=== PATIENT | female | born 1940 | race Caucasian/White ===

== ENCOUNTER → 2016-07-14 | Outpatient (CLI) | payer MEDICARE, MEDICAID ==
--- NOTE | 2016-07-14 11:40 | REP ---
BILATERAL MAMMOGRAM: Bilateral mammography performed in the MLO and CC projections and compared to multiple prior exams, most recently 07/03/2015. Once again there are clustered microcalcifications seen in the upper outer quadrant of each breast. Recommend magnification views to further evaluate, as sterotactic biopsy was recommended for both of these areas previously. Parenchymal pattern is unchanged with no new mass. IMPRESSION: ACR 0 incomplete. Clustered microcalcifications are again seen in the upper outer quadrant of each breast. Sterotactic biopsy was previously recommended for both of these areas. Recommend magnification views to further evaluate. BI-RADS/ACR category 0 mammogram, incomplete. Additional imaging and/or prior images are needed before a final assessment can be assigned. This mammogram was interpreted with the aid of an FDA-approved computer-aided detection system. The patient states she has not had a clinical breast exam in over a year. The patient letter being requested is M0. Signed by Angelo Walsh MD 07/14/2016 12:58 P
== END ==
LOC: M RAD 08:09
PROVIDERS: ATTEND Surgery
DX: Z12.31 Encounter for screening mammogram for malignant neoplasm of breast (principal)

== ENCOUNTER → 2016-08-03 | Outpatient (CLI) | payer MEDICARE, MEDICAID ==
--- NOTE | 2016-08-03 13:56 | REP ---
DIAGNOSTIC MAMMOGRAM BILATERAL: Bilateral ML views are performed. Magnification views could not be performed. Comparison made with multiple prior exams. Clustered microcalcifications in the upper outer quadrant of the right breast have increased over the past couple of years and again are considered suspicious. Clustered microcalcifications in the outer left breast have also increased in number in the past couple of years and are also considered suspicious. IMPRESSION: ACR 4 suspicious bilaterally. Clustered microcalcifications in the upper outer quadrant of the right breast and the outer left breast are considered suspicious. Again biopsy is recommended. The patient letter being requested is M4. Signed by Angelo Walsh MD 08/03/2016 04:47 P
== END ==
LOC: M RAD 12:58
PROVIDERS: ATTEND Surgery
DX: R92.2 Inconclusive mammogram (principal)

== ENCOUNTER → 2016-10-06 | Outpatient (CLI) | payer MEDICARE, MEDICAID ==
[~2016-10-06] MED LIST: ASPI1TAB PO; ATEN50TA2 PO; CHEW500C2 PO; COLA100C5 PO; DULC10SU2 PR; LEVO25TA5 PO; LISI-542 PO; MILKSUS PO; NIAS1000 PO; TRAZO50TA FT; VITA100066 PO; ZOCO10TA PO
--- NOTE | 2016-10-06 18:24 | REP ---
HISTORY: Pain and swelling. No trauma. COMPARISON: None. Degenerative change is seen throughout the foot. Small plantar and retrocalcaneal heel spurs are present. There is no evidence of an acute fracture. IMPRESSION: Chronic changes. Signed by Shayan Radford DO 10/06/2016 07:21 P
--- NOTE | 2016-10-07 09:19 | REP ---
LEFT ANKLE, FOUR VIEWS: HISTORY: Pain. COMPARISON: 04/30/2012 There is no change in the prior exam. There is no acute fracture. Unreviewed
== END ==
LOC: M WUC 17:03
PROVIDERS: ATTEND Physician Assistant
DX: M25.572 Pain in left ankle and joints of left foot (principal); M19.072 Primary osteoarthritis, left ankle and foot

== ENCOUNTER 2016-10-13 22:14 | Emergency (ER) | payer MEDICARE, MEDICAID ==
[~2016-10-13] VITALS: Ht 160 cm; Wt 86.5 kg
[2016-10-13] MEDS ORDERED: NIAS1000 PO (23:21)
[2016-10-13] MEDS ORDERED: COLA100C5 PO (23:21)
[2016-10-13] MEDS ORDERED: TRAZO50TA FT (23:21)
[2016-10-13] MEDS ORDERED: LEVO25TA5 PO (23:21)
[2016-10-13] MEDS ORDERED: MILKSUS PO (23:21)
[2016-10-13] MEDS ORDERED: DULC10SU2 PR (23:21)
[2016-10-13] MEDS ORDERED: ATEN50TA2 PO (23:21)
[2016-10-13] MEDS ORDERED: CHEW500C2 PO (23:21)
[2016-10-13] MEDS ORDERED: ZOCO10TA PO (23:21)
[2016-10-13] MEDS ORDERED: VITA100066 PO (23:21)
[2016-10-13] MEDS ORDERED: LISI-542 PO (23:21)
[2016-10-13] MEDS ORDERED: ASPI1TAB PO (23:21)
[2016-10-13] MEDS ORDERED: ASPIRIN 81 MG CHEW TABLET PO ONE (23:45)
[2016-10-13] MEDS ORDERED: NITROGLYCERIN 0.4 MG SUBL TABLET SL PRN (23:45)
[2016-10-14 00:27] LABS: BASO # 0.1 K/mm3 (0.0-0.2); BASO % 0.9 % (0.0-1.0); EOS # 0.3 K/mm3 (0.0-0.50); LARGE UNSTAINED CELL # 0.2 K/mm3 (0.0-0.4); LARGE UNSTAINED CELL % 2.7 % (0.0-4.0); LYMPH # 2.5 K/mm3 (1.5-4.5); LYMPH % 30.1 % (24.0-44.0); MEAN CORPUSCULAR HEMOGLOBIN 31.5 pg (27.0-33.0); MEAN CORPUSCULAR HGB CONC 33.6 g/dl (32.0-36.5); MEAN CORPUSCULAR VOLUME 93.9 fl (80.0-96.0); MONO # 0.6 K/mm3 (0.0-0.8); MONO % 7.9 % (0.0-5.0); NEUTROPHILS # 4.2 K/mm3 (1.8-7.7); NEUTROPHILS % 54.4 % (36.0-66.0); PLATELET COUNT, AUTOMATED 174 k/mm3 (150-450); RED CELL DISTRIBUTION WIDTH 12.3 % (11.5-14.5); WHITE BLOOD COUNT 7.8 K/mm3 (4.0-10.0)
[2016-10-14 01:12] LABS: ALBUMIN 3.1 GM/DL (3.2-5.2); ALBUMIN/GLOBULIN RATIO 0.89 (1.00-1.93); ALKALINE PHOSPHATASE 61 U/L (45-117); ALT/SGPT 20 U/L (12-78); ANION GAP 3 MEQ/L (8-16); AST/SGOT 10 U/L (15-37); BILIRUBIN,DIRECT < 0.1 MG/DL (0.0-0.2); BILIRUBIN,TOTAL 0.3 MG/DL (0.2-1.0); BLOOD UREA NITROGEN 19 MG/DL (7-18); CALCIUM LEVEL 9.6 MG/DL (8.8-10.2); CARBON DIOXIDE LEVEL 31 MEQ/L (21-32); CHLORIDE LEVEL 106 MEQ/L (98-107); CREATININE FOR GFR 1.34 MG/DL (0.55-1.02); GLOMERULAR FILTRATION RATE 41.2 (>39); GLUCOSE, FASTING 96 MG/DL (83-110); POTASSIUM SERUM 4.7 MEQ/L (3.5-5.1); SODIUM LEVEL 140 MEQ/L (136-145); TOTAL PROTEIN 6.6 GM/DL (6.4-8.2)
[2016-10-14] MEDS ORDERED: GI COCKTAIL 50ML BTL(HYOSCYAMINE/MAALOX/LIDOCAINE VISCOUS)(1:3:1) PO ONE (01:45)
--- NOTE | 2016-10-14 06:44 | ECGEPIP ---
Stationary ECG Study [facility] - ED Test Date: 2016-10-14 Pat Name: RAINE SOLIS Department: Room: - Gender: F Supervisor Boarding: : 1940 Requested By: GRACIA March Order Number: [id number] Reading MD: Gabe Espinal Measurements Intervals [place]ley Rate: 78 P: 56 GA: 178 QRS: 24 QRSD: 86 T: 43 QT: 371 QTc: 425 Interpretive Statements SINUS RHYTHM Electronically Signed On 10-14-2016 6:43:45 EDT by Gabe Espinal
[2016-10-14 07:35] VITALS: BP 145/85
--- NOTE | 2016-10-14 09:15 | REP ---
PORTABLE CHEST: AP portable view of the chest is performed. There is no prior study for comparison. There is poor ventilation with linear atelectatic change in each lung base. The heart is not enlarged. The mediastinal silhouette is unremarkable. IMPRESSION: Mild bibasilar atelectatic change. Signed by Angelo Walsh MD 10/14/2016 05:21 P
== END 2016-10-14 07:37 | disposition home or self-care (01) ==
LOC: EDBD 22:14 → M ED 22:14
DX: K21.9 Gastro-esophageal reflux disease without esophagitis (principal); I10 Essential (primary) hypertension; H25.10 Age-related nuclear cataract, unspecified eye; Z82.49 Family history of ischemic heart disease and other diseases of the circulatory system; Z79.82 Long term (current) use of aspirin; Z79.899 Other long term (current) drug therapy

== ENCOUNTER → 2016-11-17 | Outpatient (CLI) | payer MEDICARE, MEDICAID ==
--- NOTE | 2016-11-18 09:46 | DEXA ---
AP SPINE L1 - L4 1.405 1.7 3.4 LT FEMUR TOTAL 0.867 -1.1 0.6 RT FEMUR TOTAL 0.802 -1.6 0.1 TOTAL BODY TOTAL OTHER DUAL FEMUR FRAX* ASSESSMENT Risk factors: 10 year probability of fracture Major osteoporotic fracture % Hip fracture % COMMENTS: Normal bone densitometry of the spine. There is low bone density of the hips. The decreased density of the spine does not represent a significant change. The increased density of the left hip does not represent a significant change. The decreased density of the right hip does represent a significant change. The density of the spine has increased 19.2% since the initial exam on 2004. The spine density has decreased 0.5% since the most recent exam on 11/06/2014. The density of the left hip has increased 11.0% since the density initial exam on 09/17/2004. The density of the left hip has increased 1.2% since the most recent exam on 09/2014. The density of the right hip has decreased 3.3% since the initial exam on 2004. The density of the right hip has decreased 2.6% since the most recent exam on . FOLLOW-UP: Recommendation for the next bone density exam: 2 years. NEENA
== END ==
LOC: M WHC 10:34
PROVIDERS: ATTEND Nurse Practitioner Family
DX: Z01.419 Encounter for gynecological examination (general) (routine) without abnormal findings (principal); M81.8 Other osteoporosis without current pathological fracture; Z78.0 Asymptomatic menopausal state; M85.80 Other specified disorders of bone density and structure, unspecified site
CPT/HCPCS: 77080; G0101

== ENCOUNTER → 2016-11-23 | Outpatient (CLI) | payer MEDICARE, MEDICAID ==
[2016-11-23 09:54] LABS: BASO # 0.1 K/mm3 (0.0-0.2); BASO % 1.3 % (0.0-1.0); EOS # 0.2 K/mm3 (0.0-0.50); EOS % 5.2 % (0.0-3.0); LARGE UNSTAINED CELL # 0.1 K/mm3 (0.0-0.4); LARGE UNSTAINED CELL % 2.7 % (0.0-4.0); LYMPH # 1.8 K/mm3 (1.5-4.5); MEAN CORPUSCULAR HEMOGLOBIN 32.2 pg (27.0-33.0); MEAN CORPUSCULAR HGB CONC 33.3 g/dl (32.0-36.5); MEAN CORPUSCULAR VOLUME 96.6 fl (80.0-96.0); MONO # 0.3 K/mm3 (0.0-0.8); MONO % 6.1 % (0.0-5.0); NEUTROPHILS # 2.3 K/mm3 (1.8-7.7); NEUTROPHILS % 49.7 % (36.0-66.0); PLATELET COUNT, AUTOMATED 166 k/mm3 (150-450); RED CELL DISTRIBUTION WIDTH 12.5 % (11.5-14.5); WHITE BLOOD COUNT 4.7 K/mm3 (4.0-10.0)
[2016-11-23 10:22] LABS: ALBUMIN 3.6 GM/DL (3.2-5.2); ALBUMIN/GLOBULIN RATIO 1.13 (1.00-1.93); BILIRUBIN,TOTAL 0.4 MG/DL (0.2-1.0); CALCIUM LEVEL 9.1 MG/DL (8.8-10.2); CREATININE FOR GFR 1.28 MG/DL (0.55-1.02); FREE T4 1.16 NG/DL (0.76-1.46); GLOMERULAR FILTRATION RATE 43.4 (>39); POTASSIUM SERUM 4.2 MEQ/L (3.5-5.1); TOTAL PROTEIN 6.8 GM/DL (6.4-8.2)
== END ==
LOC: M WUC 08:27
PROVIDERS: ATTEND Nurse Practitioner Family
DX: I10 Essential (primary) hypertension (principal); E55.9 Vitamin D deficiency, unspecified; E03.9 Hypothyroidism, unspecified; E78.4 Other hyperlipidemia

== ENCOUNTER → 2017-03-15 | Outpatient (CLI) | payer MEDICARE, MEDICAID ==
--- NOTE | 2017-03-15 14:52 | REP ---
RIGHT TIB-FIB SERIES: TWO VIEWS HISTORY: Bruising and contusion. No comparison study. FINDINGS: AP and lateral views of the right tib-fib show diffuse soft tissue swelling laterally and distally. The lateral view is an oblique. Apparently, positioning was less than optimal due to this patient's relative inability to cooperate. No fracture or subluxation is seen. IMPRESSION: No fracture noted. Calf swelling. Signed by Alec Patel MD 03/15/2017 05:00 P
== END ==
LOC: M WUC 12:48
PROVIDERS: ATTEND Physician Assistant
DX: S80.11XA Contusion of right lower leg, initial encounter (principal); X58.XXXA Exposure to other specified factors, initial encounter; Y92.89 Other specified places as the place of occurrence of the external cause; Y93.89 Activity, other specified; Y99.8 Other external cause status

== ENCOUNTER → 2017-06-21 | Outpatient (CLI) | payer MEDICARE, MEDICAID ==
[2017-06-21 14:09] LABS: BASO % 0.3 % (0.0-1.0); HEMATOCRIT 40.5 % (36.0-47.0); HEMOGLOBIN 13.1 g/dl (12.0-16.0); IMMATURE GRANULOCYTE % 0.3 % (0-3.0); LYMPH # 2.1 10^3/uL (1.5-4.5); MEAN CORPUSCULAR HGB CONC 32.3 g/dl (32.0-36.5); MEAN CORPUSCULAR VOLUME 92.9 fl (80.0-96.0); MONO # 0.8 10^3/uL (0.0-0.8); MONO % 11.4 % (0.0-5.0); NEUTROPHILS # 4.1 10^3/uL (1.8-7.7); PLATELET COUNT, AUTOMATED 144 10^3/uL (150-450); RED BLOOD COUNT 4.36 10^6/uL (4.00-5.40)
== END ==
LOC: M WUC 10:48
DX: J20.9 Acute bronchitis, unspecified (principal)
CPT/HCPCS: 85025

== ENCOUNTER → 2017-07-26 | Outpatient (REF) | payer MEDICARE, MEDICAID ==
[2017-07-26 12:30] LABS: APPEARANCE, URINE TURBID (CLEAR); BACTERIA, URINE AUTO 3+ (NEGATIVE); BILIRUBIN, URINE AUTO NEGATIVE (NEGATIVE); BLOOD, URINE BLOOD 1+ (NEGATIVE); COLOR, URINE YELLOW (YELLOW); GLUCOSE, URINE (UA) AUTO NEGATIVE (NEGATIVE); KETONE, URINE AUTO NEGATIVE (NEGATIVE); LEUKOCYTE ESTERASE, URINE AUTO 3+ (NEGATIVE); MUCUS, URINE SMALL (NEGATIVE); NITRITE, URINE AUTO NEGATIVE (NEGATIVE); PROTEIN, URINE AUTO 1+ mg/dL (NEGATIVE); RBC, URINE AUTO 28 /HPF (0-3); SQUAMOUS EPITHELIAL CELL UR AU 1 /HPF (0-6); UROBILINOGEN, URINE AUTO 0.2 mg/dL (0.0-2.0); WBC, URINE AUTO TNTC /HPF (0-3)
== END ==
LOC: M LAB REF 12:00
DX: N39.0 Urinary tract infection, site not specified (principal)
CPT/HCPCS: 81001

== ENCOUNTER → 2017-08-15 | Outpatient (CLI) | payer MEDICARE, MEDICAID | LOC: M RAD 09:01 | DX: R92.0 Mammographic microcalcification found on diagnostic imaging of breast (principal) | CPT/HCPCS: 77066 ==

== ENCOUNTER → 2017-08-24 | Outpatient (REF) | payer MEDICARE, MEDICAID ==
[2017-08-24 18:39] LABS: APPEARANCE, URINE HAZY (CLEAR); BACTERIA, URINE AUTO 1+ (NEGATIVE); BILIRUBIN, URINE AUTO NEGATIVE (NEGATIVE); BLOOD, URINE BLOOD NEGATIVE (NEGATIVE); COLOR, URINE YELLOW (YELLOW); GLUCOSE, URINE (UA) AUTO NEGATIVE (NEGATIVE); KETONE, URINE AUTO NEGATIVE (NEGATIVE); LEUKOCYTE ESTERASE, URINE AUTO 1+ (NEGATIVE); MUCUS, URINE SMALL (NEGATIVE); NITRITE, URINE AUTO NEGATIVE (NEGATIVE); PROTEIN, URINE AUTO NEGATIVE (NEGATIVE); RBC, URINE AUTO 1 /HPF (0-3); SPECIFIC GRAVITY URINE AUTO 1.011 (1.002-1.035); SQUAMOUS EPITHELIAL CELL UR AU 1 /HPF (0-6); UROBILINOGEN, URINE AUTO 0.2 mg/dL (0.0-2.0); WBC, URINE AUTO 26 /HPF (0-3)
== END ==
LOC: M SMT 17:00
DX: N39.0 Urinary tract infection, site not specified (principal)
CPT/HCPCS: 81001

== ENCOUNTER → 2017-11-15 | Outpatient (CLI) | payer MEDICARE, MEDICAID ==
[2017-11-15 09:52] LABS: BASO % 0.8 % (0.0-1.0); EOS # 0.2 10^3/uL (0.0-0.50); EOS % 4.2 % (0.0-3.0); HEMATOCRIT 39.3 % (36.0-47.0); HEMOGLOBIN 12.8 g/dl (12.0-15.5); IMMATURE GRANULOCYTE % 0.2 % (0-3.0); LYMPH % 38.2 % (24.0-44.0); MEAN CORPUSCULAR HEMOGLOBIN 31.5 pg (27.0-33.0); MEAN CORPUSCULAR HGB CONC 32.6 g/dl (32.0-36.5); MEAN CORPUSCULAR VOLUME 96.8 fl (80.0-96.0); MONO # 0.4 10^3/uL (0.0-0.8); MONO % 8.3 % (0.0-5.0); NEUTROPHILS # 2.5 10^3/uL (1.8-7.7); NEUTROPHILS % 48.3 % (36.0-66.0); PLATELET COUNT, AUTOMATED 145 10^3/uL (150-450); RED BLOOD COUNT 4.06 10^6/uL (4.00-5.40); WHITE BLOOD COUNT 5.2 10^3/uL (4.0-10.0)
[2017-11-15 10:40] LABS: TOTAL 25(OH) VITAMIN D 41.4 NG/ML (30.0-100.0)
[2017-11-15 10:49] LABS: ALBUMIN 3.3 GM/DL (3.2-5.2); ALKALINE PHOSPHATASE 51 U/L (45-117); ALT/SGPT 16 U/L (12-78); ANION GAP 10 MEQ/L (8-16); AST/SGOT 12 U/L (7-37); BILIRUBIN,TOTAL 0.3 MG/DL (0.2-1.0); BLOOD UREA NITROGEN 25 MG/DL (7-18); CALCIUM LEVEL 9.3 MG/DL (8.8-10.2); CARBON DIOXIDE LEVEL 26 MEQ/L (21-32); CHLORIDE LEVEL 107 MEQ/L (98-107); CHOLESTEROL LEVEL 138 MG/DL (<200); CHOLESTEROL RISK RATIO 2.705 (<5); CREATININE FOR GFR 2.06 MG/DL (0.55-1.30); GLUCOSE, FASTING 86 MG/DL (70-100); HDL CHOLESTEROL 51 MG/DL (>40); LDL CHOLESTEROL 51.6 MG/DL (<100); NON-HDL-C 87 MG/DL; POTASSIUM SERUM 4.3 MEQ/L (3.5-5.1); SODIUM LEVEL 143 MEQ/L (136-145); TOTAL PROTEIN 6.3 GM/DL (6.4-8.2); TRIGLYCERIDES LEVEL 177 MG/DL (<150)
[2017-11-15 11:31] LABS: FREE T3 2.1 PG/ML (2.2-4.0)
== END ==
LOC: M WUC 08:06
DX: I10 Essential (primary) hypertension (principal); E55.9 Vitamin D deficiency, unspecified; E03.9 Hypothyroidism, unspecified; E78.4 Other hyperlipidemia
CPT/HCPCS: 84443

== ENCOUNTER → 2017-12-13 | Outpatient (CLI) | payer MEDICARE, MEDICAID | LOC: M SMT 10:34 | DX: N18.4 Chronic kidney disease, stage 4 (severe) (principal); N28.1 Cyst of kidney, acquired | CPT/HCPCS: 76770 ==

== ENCOUNTER → 2018-01-01 | Outpatient (CLI) | payer MEDICARE, MEDICAID ==
[2018-01-01 14:05] LABS: FREE T3 2.2 PG/ML (2.2-4.0); FREE T4 0.98 NG/DL (0.76-1.46)
== END ==
LOC: M WUC 10:06
DX: E03.9 Hypothyroidism, unspecified (principal)
CPT/HCPCS: 84443

== ENCOUNTER → 2018-08-23 | Outpatient (CLI) | payer MEDICARE, MEDICAID ==
[~2018-08-23] MED LIST changes: -ASPI1TAB PO; +ASPI81TA26 PO; +MILK120011 PO; -MILKSUS PO; -NIAS1000 PO; +[UNRECOGNIZED DRUG - CODE] PO
--- NOTE | 2018-08-23 09:48 | REPMRS ---
Patient History The patient states she has not had a clinical breast exam in over a year. [facility] client hx not available Digital Mammo Diagnostic Bilateral: August 23, 2018 - Exam #: [id number] Bilateral CC and MLO view(s) were taken. Technologist: Linda Brown, Technologist Prior study comparison: August 15, 2017, digital mammo diagnostic bilateral performed at [facility]. August 03, 2016, digital mammo diagnostic bilateral performed at [facility]. FINDINGS: The breast tissue is heterogeneously dense. This may lower the sensitivity of mammography. There has been no change in the appearance of the mammogram from the prior studies. There is a moderate amount of residual fibroglandular tissue which is fairly symmetric. There is no interval development of dominant mass, areas of architectural distortion, or clustered microcalcification typical of malignancy. Assessment: BI-RADS/ACR category 1 mammogram. Negative Mammogram. Recommendation Routine screening mammogram in 1 year (for women over age 40). This mammogram was interpreted with the aid of an FDA-approved computer-aided dectection system. Electronically Signed By: Angelo Walsh MD 08/23/18 0971
== END ==
LOC: M RAD 09:10
PROVIDERS: ATTEND Surgery
DX: R92.0 Mammographic microcalcification found on diagnostic imaging of breast (principal)

== ENCOUNTER → 2018-11-29 | Outpatient (CLI) | payer MEDICARE, MEDICAID ==
[~2018-11-29] MED LIST changes: +TRAZ1TAB10 FT; -TRAZO50TA FT
[2018-11-29 13:15] LABS: BASO # 0.1 10^3/uL (0.0-0.2); BASO % 1.1 % (0.0-1.0); EOS # 0.2 10^3/uL (0.0-0.50); EOS % 3.3 % (0.0-3.0); HEMATOCRIT 42.6 % (36.0-47.0); HEMOGLOBIN 13.7 g/dl (12.0-15.5); LYMPH # 2.3 10^3/uL (1.5-4.5); MEAN CORPUSCULAR HEMOGLOBIN 31.3 pg (27.0-33.0); MEAN CORPUSCULAR HGB CONC 32.2 g/dl (32.0-36.5); MEAN CORPUSCULAR VOLUME 97.3 fl (80.0-96.0); MONO # 0.6 10^3/uL (0.0-0.8); MONO % 11.1 % (0.0-5.0); NEUTROPHILS # 2.5 10^3/uL (1.8-7.7); NEUTROPHILS % 43.3 % (36.0-66.0); PLATELET COUNT, AUTOMATED 176 10^3/uL (150-450); RED BLOOD COUNT 4.38 10^6/uL (4.00-5.40); WHITE BLOOD COUNT 5.7 10^3/uL (4.0-10.0)
[2018-11-29 13:55] LABS: ALBUMIN 3.3 GM/DL (3.2-5.2); BILIRUBIN,TOTAL 0.3 MG/DL (0.2-1.0); CALCIUM LEVEL 9.6 MG/DL (8.8-10.2); CHOLESTEROL RISK RATIO 3.911 (<5); CREATININE FOR GFR 1.94 MG/DL (0.55-1.30); FREE T4 1.29 NG/DL (0.76-1.46); GLOMERULAR FILTRATION RATE 26.7 (>39); MAGNESIUM LEVEL 2.3 MG/DL (1.8-2.4); POTASSIUM SERUM 4.7 MEQ/L (3.5-5.1); PTH INTACT 69.2 PG/ML (18.5-88.0); THYROID STIMULATING HORMONE 2.74 uIU/ML (0.358-3.740); TOTAL 25(OH) VITAMIN D 38.5 NG/ML (30.0-100.0); TOTAL PROTEIN 6.3 GM/DL (6.4-8.2)
[2018-11-29 14:52] LABS: HEMOGLOBIN A1c 5.2 %
== END ==
LOC: M WUC 08:22
PROVIDERS: ATTEND Nurse Practitioner Family
DX: I10 Essential (primary) hypertension (principal); E03.9 Hypothyroidism, unspecified; E78.5 Hyperlipidemia, unspecified; E55.9 Vitamin D deficiency, unspecified; Z79.899 Other long term (current) drug therapy

== ENCOUNTER → 2018-12-18 | Outpatient (CLI) | payer MEDICARE, MEDICAID ==
--- NOTE | 2018-12-20 11:33 | DEXA ---
AP SPINE L1 - L4 1.397 1.6 3.4 LT FEMUR TOTAL 0.843 -1.3 0.5 LT NECK 0.779 -1.9 0.1 RT FEMUR TOTAL 0.788 -1.7 0.1 RT NECK 0.789 -1.8 0.2 TOTAL BODY TOTAL OTHER COMMENTS: Normal bone densitometry of the spine. There is low bone density of hips. The decreased density of the spine does not represent a significant change. The decreased density of the left hip does represent a significant change. The decreased density of the right hip does not represent a significant change. The density of the spine has increased 18.5% since the initial exam on 09/17/2004. The spine density has decreased 0.6% since the most recent exam on 11/17/2016. The density of the left hip has increased 7.9% since the initial exam on 09/17/2004. The density of the left hip has decreased 2.8% since the most recent exam on 11/17/2016. The density of the right hip has decreased 4.9% since the initial exam on 09/17/2004. The density of the right hip has decreased 1.7% since the most recent exam on 11/17/2016. FOLLOW-UP: Recommendation for the next bone density exam: 2 years. NEENA
== END ==
LOC: M WHC 13:47
PROVIDERS: ATTEND Nurse Practitioner Family
DX: M81.0 Age-related osteoporosis without current pathological fracture (principal)

== ENCOUNTER → 2019-05-27 | Outpatient (CLI) | payer MEDICARE, MEDICAID ==
[2019-05-27 09:42] LABS: BASO # 0.1 10^3/uL (0.0-0.2); BASO % 1.2 % (0.0-1.0); EOS # 0.2 10^3/uL (0.0-0.5); EOS % 3.9 % (0.0-3.0); HEMATOCRIT 45.6 % (36.0-47.0); HEMOGLOBIN 14.7 g/dl (12.0-15.5); LYMPH % 34.5 % (24.0-44.0); MEAN CORPUSCULAR HEMOGLOBIN 30.2 pg (27.0-33.0); MEAN CORPUSCULAR HGB CONC 32.2 g/dl (32.0-36.5); MEAN CORPUSCULAR VOLUME 93.8 fl (80.0-96.0); MONO # 0.5 10^3/uL (0.0-0.8); MONO % 7.9 % (0.0-5.0); NEUTROPHILS # 3.1 10^3/uL (1.5-8.5); NEUTROPHILS % 52.3 % (36.0-66.0); PLATELET COUNT, AUTOMATED 190 10^3/uL (150-450); RED BLOOD COUNT 4.86 10^6/uL (4.00-5.40); WHITE BLOOD COUNT 5.9 10^3/uL (4.0-10.0)
[2019-05-27 10:05] LABS: HEMOGLOBIN A1c 4.8 %
[2019-05-27 10:19] LABS: ALBUMIN 3.7 GM/DL (3.2-5.2); BILIRUBIN,TOTAL 0.4 MG/DL (0.2-1.0); CALCIUM LEVEL 9.8 MG/DL (8.8-10.2); CHOLESTEROL RISK RATIO 3.568 (<5); CREATININE FOR GFR 1.82 MG/DL (0.55-1.30); FREE T4 1.28 NG/DL (0.76-1.46); GLOMERULAR FILTRATION RATE 28.7 (>39); MAGNESIUM LEVEL 2.5 MG/DL (1.8-2.4); POTASSIUM SERUM 4.8 MEQ/L (3.5-5.1); THYROID STIMULATING HORMONE 1.69 uIU/ML (0.358-3.740); TOTAL PROTEIN 6.7 GM/DL (6.4-8.2)
[2019-05-27 10:27] LABS: PTH INTACT 88.5 PG/ML (18.5-88.0); TOTAL 25(OH) VITAMIN D 49.1 NG/ML (30.0-100.0)
== END ==
LOC: M WUC 08:13
PROVIDERS: ATTEND Nurse Practitioner Family
DX: I10 Essential (primary) hypertension (principal); E03.9 Hypothyroidism, unspecified; E78.5 Hyperlipidemia, unspecified; E55.9 Vitamin D deficiency, unspecified

== ENCOUNTER 2019-06-19 04:08 | Emergency (ER) | payer MEDICARE, MEDICAID ==
--- NOTE | 2019-06-19 04:48 | REPVR ---
PROCEDURE INFORMATION: Exam: CT Head Without Contrast Exam date and time: 06/19/2019 4:23 AM Age: 79 years old Clinical indication: Injury or trauma; Fall; Initial encounter; Blunt trauma (contusions or hematomas); Consciousness not specified TECHNIQUE: Imaging protocol: Computed tomography of the head without contrast. Radiation optimization: All CT scans at this facility use at least one of these dose optimization techniques: automated exposure control; mA and/or kV adjustment per patient size (includes targeted exams where dose is matched to clinical indication); or iterative reconstruction. COMPARISON: No relevant prior studies available. FINDINGS: Brain: There is minimal patchy low attenuation of deep white matter. Increased CSF around the cerebellum consistent with moderate atrophic change. Ventricles: There is slight prominence of the central ventricular system. Bones/joints: Hyperostosis of the calvarium with thickening. Sinuses: Visualized sinuses are unremarkable. No fluid levels. Mastoid air cells: Opacification of some mastoid air cells bilaterally. Soft tissues: Unremarkable. IMPRESSION: 1. Minimal chronic ischemic white matter change. 2. Moderate cerebellar atrophy and minimal cerebral atrophy. 3. Opacification of some mastoid air cells bilaterally. 4. Otherwise negative noncontrast head CT. Electronically signed by: Casey Cooley On 06/19/2019 04:48:21 AM
--- NOTE | 2019-06-19 04:54 | REPVR ---
PROCEDURE INFORMATION: Exam: CT Cervical Spine Without Contrast Exam date and time: 06/19/2019 4:23 AM Age: 79 years old Clinical indication: Neck pain; Additional info: Fall TECHNIQUE: Imaging protocol: Computed tomography images of the cervical spine without contrast. Radiation optimization: All CT scans at this facility use at least one of these dose optimization techniques: automated exposure control; mA and/or kV adjustment per patient size (includes targeted exams where dose is matched to clinical indication); or iterative reconstruction. COMPARISON: No relevant prior studies available. FINDINGS: Vertebrae: No acute fracture. Normal alignment. C2-C3: Slight interspace narrowing with mild degenerative change of the left apophyseal joints and no spinal or foraminal stenosis. C3-C4: Mild interspace narrowing with degenerative changes of the apophyseal joints and no significant spinal or foraminal stenosis. C4-C5: Slight anterolisthesis with degenerative/arthritic change of the apophyseal joints bilaterally with widening of the joint suggesting effusions. There is borderline spinal stenosis and borderline left neural foraminal stenosis. C5-C6: Mild anterolisthesis with mild posterior central protrusion of the disc and bilateral degenerative change. There is mild central canal stenosis and borderline bilateral neural foraminal stenosis. C6-C7: Moderate interspace narrowing with degenerative vacuum phenomenon and bilateral degenerative change. There is mild secondary spinal stenosis and borderline left neural foraminal stenosis. C7-T1: Slight interspace narrowing with mild anterolisthesis and bilateral degenerative change of apophyseal joints with borderline bilateral neural foraminal stenosis. Soft tissues: Unremarkable. Mastoid air cells: Opacification of some mastoid air cells bilaterally. Lungs: Lung apices are normal. IMPRESSION: 1. Multilevel degenerative changes with varying degrees of spinal stenosis and borderline neural foraminal stenosis at multiple levels. 2. No acute fracture or subluxation. Electronically signed by: Casey Cooley On 06/19/2019 04:54:08 AM
[2019-06-19] MEDS ORDERED: ACETAMINOPHEN TAB 650MG DOSE (2X325MG) PO ONE (05:30)
[2019-06-19] MEDS ORDERED: PILL CUTTER 1 EACH XX ONE (05:32)
[2019-06-19 05:36] VITALS: BP 169/92
--- NOTE | 2019-06-19 07:54 | REP ---
Left shoulder: Three views. History: Injury in a fall. Comparison study: May 17, 2007. Findings: There is mild osteoarthritis of the glenohumeral and acromioclavicular joints. These articulations are normally aligned. No fracture or subluxation is seen. There is some diffuse osteopenia. Impression: Diffuse osteopenia and mild osteoarthritic change. No fracture or other acute bony abnormality. Electronically Signed by Alec Patel MD 06/19/2019 07:45 A
== END 2019-06-19 05:52 | disposition home or self-care (01) ==
LOC: EDSEX 04:08 → EDBD 04:08 → M ED 04:08
DX: S40.012A Contusion of left shoulder, initial encounter (principal); W19.XXXA Unspecified fall, initial encounter; Y92.89 Other specified places as the place of occurrence of the external cause; Y93.9 Activity, unspecified; Y99.9 Unspecified external cause status; M48.02 Spinal stenosis, cervical region; M85.812 Other specified disorders of bone density and structure, left shoulder; M19.012 Primary osteoarthritis, left shoulder; F80.9 Developmental disorder of speech and language, unspecified; I12.9 Hypertensive chronic kidney disease with stage 1 through stage 4 chronic kidney disease, or unspecified chronic kidney disease; E78.5 Hyperlipidemia, unspecified; K21.9 Gastro-esophageal reflux disease without esophagitis; E03.9 Hypothyroidism, unspecified; F79 Unspecified intellectual disabilities; Z79.82 Long term (current) use of aspirin; Z79.899 Other long term (current) drug therapy

== ENCOUNTER → 2019-07-04 | Outpatient (CLI) | payer MEDICARE, MEDICAID ==
--- NOTE | 2019-07-04 18:34 | REP ---
RIGHT HAND SERIES: FOUR VIEWS. HISTORY: Hand pain. Thumb swelling. No comparison study. FINDINGS: Four views of the left hand demonstrate mild diffuse osteopenia. There is moderate osteoarthritis at the first carpometacarpal articulation. Mild osteoarthritic spurring is seen at the first MCP and IP joints. There are erosive osteoarthritic changes involving the PIP joints of the long, ring, and small finger and to a lesser extent, the index finger. Osteoarthritic changes are seen in the DIP joints of the index, long and small finger as well. There are marginal erosive changes at the PIP joint of the long finger. IMPRESSION: Findings consistent with erosive osteoarthritis. Electronically Signed by Alec Patel MD 07/04/2019 07:32 P
== END ==
LOC: M WUC 17:59
PROVIDERS: ATTEND Physician Assistant
DX: M79.642 Pain in left hand (principal)

== ENCOUNTER → 2019-10-01 | Outpatient (REF) | payer MEDICARE, MEDICAID ==
[2019-10-01 11:50] LABS: BASO # 0.1 10^3/uL (0.0-0.2); BASO % 1.2 % (0.0-1.0); EOS # 0.2 10^3/uL (0.0-0.5); EOS % 3.6 % (0.0-3.0); HEMATOCRIT 49.7 % (36.0-47.0); HEMOGLOBIN 15.8 g/dl (12.0-15.5); LYMPH # 1.6 10^3/uL (1.5-5.0); LYMPH % 24.3 % (24.0-44.0); MEAN CORPUSCULAR HEMOGLOBIN 29.7 pg (27.0-33.0); MEAN CORPUSCULAR HGB CONC 31.8 g/dl (32.0-36.5); MEAN CORPUSCULAR VOLUME 93.4 fl (80.0-96.0); MONO # 0.5 10^3/uL (0.0-0.8); MONO % 8.3 % (0.0-5.0); NEUTROPHILS % 62.3 % (36.0-66.0); PLATELET COUNT, AUTOMATED 199 10^3/uL (150-450); RED BLOOD COUNT 5.32 10^6/uL (4.00-5.40); WHITE BLOOD COUNT 6.5 10^3/uL (4.0-10.0)
[2019-10-01 12:20] LABS: BLOOD UREA NITROGEN 32 MG/DL (7-18); CREATININE FOR GFR 2.12 MG/DL (0.55-1.30); GLUCOSE, FASTING 114 MG/DL (70-100)
[2019-10-01 12:21] LABS: ALBUMIN 3.4 GM/DL (3.2-5.2); ALT/SGPT 19 U/L (12-78); BILIRUBIN,TOTAL 0.3 MG/DL (0.2-1.0); CALCIUM LEVEL 10.2 MG/DL (8.8-10.2); CARBON DIOXIDE LEVEL 27 MEQ/L (21-32); CHLORIDE LEVEL 107 MEQ/L (98-107); POTASSIUM SERUM 4.4 MEQ/L (3.5-5.1); SODIUM LEVEL 139 MEQ/L (136-145); TOTAL PROTEIN 7.1 GM/DL (6.4-8.2)
[2019-10-02 09:25] LABS: HEPATITIS A ANTIBODY IGM NEGATIVE (NEGATIVE)
== END ==
LOC: M SFHCPLAZ 09:25
PROVIDERS: ATTEND Physician Assistant Medical
DX: E86.0 Dehydration (principal)
CPT/HCPCS: 36415; 80053; 85025; 86708; 86709; G0463

== ENCOUNTER → 2019-11-26 | Outpatient (CLI) | payer MEDICARE, MEDICAID ==
[2019-11-26 13:00] LABS: BASO # 0.1 10^3/uL (0.0-0.2); BASO % 1.2 % (0.0-1.0); EOS # 0.2 10^3/uL (0.0-0.5); EOS % 3.9 % (0.0-3.0); HEMATOCRIT 43.8 % (36.0-47.0); HEMOGLOBIN 14.1 g/dl (12.0-15.5); LYMPH # 1.9 10^3/uL (1.5-5.0); LYMPH % 32.2 % (24.0-44.0); MEAN CORPUSCULAR HEMOGLOBIN 30.4 pg (27.0-33.0); MEAN CORPUSCULAR HGB CONC 32.2 g/dl (32.0-36.5); MEAN CORPUSCULAR VOLUME 94.4 fl (80.0-96.0); MONO # 0.5 10^3/uL (0.0-0.8); MONO % 8.9 % (0.0-5.0); NEUTROPHILS # 3.2 10^3/uL (1.5-8.5); NEUTROPHILS % 53.5 % (36.0-66.0); PLATELET COUNT, AUTOMATED 209 10^3/uL (150-450); RED BLOOD COUNT 4.64 10^6/uL (4.00-5.40); WHITE BLOOD COUNT 5.9 10^3/uL (4.0-10.0)
[2019-11-26 13:28] LABS: ALBUMIN 3.3 GM/DL (3.2-5.2); BILIRUBIN,TOTAL 0.4 MG/DL (0.2-1.0); CALCIUM LEVEL 9.1 MG/DL (8.8-10.2); CHOLESTEROL RISK RATIO 3.605 (<5); CREATININE FOR GFR 2.23 MG/DL (0.55-1.30); FREE T4 1.48 NG/DL (0.76-1.46); GLOMERULAR FILTRATION RATE 22.7 (>39); POTASSIUM SERUM 4.8 MEQ/L (3.5-5.1); THYROID STIMULATING HORMONE 3.13 uIU/ML (0.358-3.740); TOTAL PROTEIN 6.3 GM/DL (6.4-8.2)
== END ==
LOC: M WUC 08:17
PROVIDERS: ATTEND Nurse Practitioner Family
DX: E03.9 Hypothyroidism, unspecified (principal); E78.5 Hyperlipidemia, unspecified; I10 Essential (primary) hypertension

== ENCOUNTER → 2020-01-08 | Outpatient (CLI) | payer MEDICARE, MEDICAID ==
--- NOTE | 2020-01-13 09:58 | REP ---
COMPLETE ABDOMINAL SONOGRAPHY HISTORY: Abdomen pain, decreased appetite, constipation. FINDINGS: Scanning through the right upper quadrant of the abdomen demonstrate multiple nonmobile shadowing echogenic foci in the gallbladder lumen consistent with stones. The largest of these measures 1.7 cm in diameter. No gallbladder wall thickening or pericholecystic fluid is seen. Common bile duct is normal measuring 0.5 cm in greatest diameter. There is some bowel gas partially obscuring the left lobe of the liver. No focal liver mass lesion is seen. The liver is not felt to be enlarged. Pancreas is obscured by abdominal gas. A normal size homogeneous spleen is seen in the left upper quadrant, maximum dimension 8.7 cm. No free fluid is seen. Normal caliber distal aorta is observed. Renal cortical echogenicity pattern is normal. Bilateral renal cortical thinning/atrophy is seen. There is a 0.9 x 1.0 cm left renal cyst. Left kidney measures 8.3 x 3.4 x 4.0 cm. Right renal dimensions are 8.0 x 3.6 x 3.2 cm. No hydronephrosis or renal mass is observed. IMPRESSION: Cholelithiasis. Renal cortical atrophy. Small left renal cyst. MTDD
--- NOTE | 2020-01-13 10:00 | REP ---
PELVIC SONOGRAPHY HISTORY: Status post partial hysterectomy. Abdomen pain. Decreased appetite. Constipation. FINDINGS: Transabdominal scanning demonstrates smooth bladder coronel. The uterus is not seen consistent with surgical absence hysterectomy. Neither ovary could be visualized. No adnexal mass, cyst, or free fluid is seen. IMPRESSION: Negative pelvic sonography post hysterectomy. No adnexal mass, cyst, or free fluid noted. MTDD
--- NOTE | 2020-01-13 10:02 | REP ---
KUB: 2-VIEWS HISTORY: Abdomen pain. Decreased appetite. Constipation. FINDINGS: KUB demonstrates air and stool in the ascending colon, descending colon, and rectum. No small bowel dilation is seen. There is mild gaseous distention of a loop of colon in the central abdomen, which appears to be sigmoid. Question mild ileus. There are degenerative spondylosis changes in the lumbar spine. A bone island is seen in the right iliac bone. IMPRESSION: Air distended loop of mildly dilated sigmoid colon of doubtful significance. No obstructive lesion seen. MTDD
== END ==
LOC: M RAD 08:01
PROVIDERS: ATTEND Physician Assistant
DX: R10.9 Unspecified abdominal pain (principal); K59.00 Constipation, unspecified; R63.0 Anorexia

== ENCOUNTER → 2020-01-17 | Outpatient (CLI) | payer MEDICARE, MEDICAID ==
--- NOTE | 2020-01-17 09:43 | REP ---
INDICATION: GENERALIZED ABDOMINAL PAIN COMPARISON: None. TECHNIQUE: Supine view of the abdomen and pelvis. FINDINGS: Bowel gas pattern is nonspecific and without obstruction or perforation. No organomegaly. No abnormal calcifications. Skeletal structures intact. IMPRESSION: Normal abdominal radiograph. <Electronically signed by Ernei Will > 01/17/20 0900
== END ==
LOC: M WUC 09:13
PROVIDERS: ATTEND Physician Assistant
DX: R10.84 Generalized abdominal pain (principal)

== ENCOUNTER → 2020-04-27 | Outpatient (REF) | payer MEDICARE, MEDICAID ==
[~2020-04-27] MED LIST changes: +CALC-362 PO; -CHEW500C2 PO; -LISI-542 PO; +LISI-898 PO
[2020-04-27 14:02] LABS: ALBUMIN 3.4 GM/DL (3.2-5.2); BILIRUBIN,TOTAL 0.3 MG/DL (0.2-1.0); CALCIUM LEVEL 9.8 MG/DL (8.8-10.2); CHOLESTEROL RISK RATIO 3.871 (<5); FREE T4 1.23 NG/DL (0.76-1.46); GLOMERULAR FILTRATION RATE 25.7 (>39); MAGNESIUM LEVEL 2.5 MG/DL (1.8-2.4); POTASSIUM SERUM 4.6 MEQ/L (3.5-5.1); THYROID STIMULATING HORMONE 1.84 uIU/ML (0.358-3.740); TOTAL 25(OH) VITAMIN D 48.2 NG/ML (30.0-100.0); TOTAL PROTEIN 6.7 GM/DL (6.4-8.2)
[2020-04-27 15:34] LABS: HEMOGLOBIN A1c 4.7 %
== END ==
LOC: M SFHCPLAZ 10:34
PROVIDERS: ATTEND Nurse Practitioner Family
DX: E03.9 Hypothyroidism, unspecified (principal); I10 Essential (primary) hypertension; E78.5 Hyperlipidemia, unspecified; E55.9 Vitamin D deficiency, unspecified; Z79.899 Other long term (current) drug therapy

== ENCOUNTER → 2020-10-07 | Outpatient (CLI) | payer MEDICARE, MEDICAID ==
[~2020-10-07] MED LIST changes: -LISI-898 PO; +LISI5TAB11 PO
[2020-10-07 12:03] LABS: BASO # 0.1 10^3/uL (0.0-0.2); BASO % 1.1 % (0.0-1.0); EOS # 0.2 10^3/uL (0.0-0.5); EOS % 2.9 % (0.0-3.0); HEMATOCRIT 43.5 % (36.0-47.0); HEMOGLOBIN 13.7 g/dl (12.0-15.5); LYMPH # 1.7 10^3/uL (1.5-5.0); LYMPH % 31.7 % (24.0-44.0); MEAN CORPUSCULAR HEMOGLOBIN 30.2 pg (27.0-33.0); MEAN CORPUSCULAR HGB CONC 31.5 g/dl (32.0-36.5); MONO # 0.5 10^3/uL (0.0-0.8); MONO % 8.7 % (2.0-8.0); NEUTROPHILS % 55.4 % (36.0-66.0); PLATELET COUNT, AUTOMATED 197 10^3/uL (150-450); RED BLOOD COUNT 4.53 10^6/uL (4.00-5.40); WHITE BLOOD COUNT 5.4 10^3/uL (4.0-10.0)
[2020-10-07 12:22] LABS: HEMOGLOBIN A1c 5.1 %
[2020-10-07 12:39] LABS: ALBUMIN 3.3 GM/DL (3.2-5.2); BILIRUBIN,TOTAL 0.4 MG/DL (0.2-1.0); CALCIUM LEVEL 9.3 MG/DL (8.8-10.2); CHOLESTEROL RISK RATIO 3.311 (<5); CREATININE FOR GFR 2.08 MG/DL (0.55-1.30); FREE T4 1.36 NG/DL (0.76-1.46); GLOMERULAR FILTRATION RATE 24.5 (>39); POTASSIUM SERUM 4.4 MEQ/L (3.5-5.1); THYROID STIMULATING HORMONE 1.24 uIU/ML (0.358-3.740); TOTAL 25(OH) VITAMIN D 48.7 NG/ML (30.0-100.0); TOTAL PROTEIN 6.1 GM/DL (6.4-8.2)
== END ==
LOC: M WUC 08:55
PROVIDERS: ATTEND Nurse Practitioner Family
DX: E78.5 Hyperlipidemia, unspecified (principal); E55.9 Vitamin D deficiency, unspecified; I10 Essential (primary) hypertension

== ENCOUNTER → 2020-12-10 | Outpatient (CLI) | payer MEDICARE, MEDICAID ==
[~2020-12-10] MED LIST changes: +LISI-898 PO; -LISI5TAB11 PO
== END ==
LOC: M LABSMTC 09:15
PROVIDERS: ATTEND Pediatrics
DX: Z11.52 Encounter for screening for COVID-19 (principal)
CPT/HCPCS: C9803; U0003

== ENCOUNTER → 2020-12-21 | Outpatient (CLI) | payer MEDICARE, MEDICAID ==
[~2020-12-21] MED LIST changes: -LISI-898 PO; +LISI5TAB11 PO
== END ==
LOC: M WHC 10:15
PROVIDERS: ATTEND Nurse Practitioner Family
DX: Z12.31 Encounter for screening mammogram for malignant neoplasm of breast (principal)

== ENCOUNTER → 2021-05-19 | Outpatient (CLI) | payer MEDICARE, MEDICAID | LOC: M WHC 03-23 09:37 | PROVIDERS: ATTEND Nurse Practitioner Family | DX: Z12.31 Encounter for screening mammogram for malignant neoplasm of breast (principal); M80.852A Other osteoporosis with current pathological fracture, left femur, initial encounter for fracture; R92.1 Mammographic calcification found on diagnostic imaging of breast; M85.851 Other specified disorders of bone density and structure, right thigh ==

== ENCOUNTER → 2021-05-26 | Outpatient (CLI) | payer MEDICARE, MEDICAID ==
[2021-05-26 13:06] LABS: BASO # 0.1 10^3/uL (0.0-0.2); BASO % 1.1 % (0.0-1.0); EOS # 0.2 10^3/uL (0.0-0.5); EOS % 3.9 % (0.0-3.0); HEMATOCRIT 45.6 % (36.0-47.0); HEMOGLOBIN 14.2 g/dl (12.0-15.5); LYMPH # 1.6 10^3/uL (1.5-5.0); LYMPH % 29.3 % (24.0-44.0); MEAN CORPUSCULAR HEMOGLOBIN 29.3 pg (27.0-33.0); MEAN CORPUSCULAR HGB CONC 31.1 g/dl (32.0-36.5); MEAN CORPUSCULAR VOLUME 94.2 fl (80.0-96.0); MONO # 0.4 10^3/uL (0.0-0.8); MONO % 7.7 % (2.0-8.0); NEUTROPHILS # 3.2 10^3/uL (1.5-8.5); NEUTROPHILS % 57.8 % (36.0-66.0); PLATELET COUNT, AUTOMATED 193 10^3/uL (150-450); RED BLOOD COUNT 4.84 10^6/uL (4.00-5.40); WHITE BLOOD COUNT 5.6 10^3/uL (4.0-10.0)
[2021-05-26 13:47] LABS: ALBUMIN 3.3 GM/DL (3.2-5.2); BILIRUBIN,TOTAL 0.4 MG/DL (0.2-1.0); CALCIUM LEVEL 9.4 MG/DL (8.8-10.2); CHOLESTEROL RISK RATIO 3.227 (<5); CREATININE FOR GFR 2.37 MG/DL (0.55-1.30); FREE T4 1.27 NG/DL (0.76-1.46); POTASSIUM SERUM 4.4 MEQ/L (3.5-5.1); THYROID STIMULATING HORMONE 1.91 uIU/ML (0.358-3.740); TOTAL 25(OH) VITAMIN D 48.7 NG/ML (30.0-100.0); TOTAL PROTEIN 6.4 GM/DL (6.4-8.2)
== END ==
LOC: M WUC 08:55
PROVIDERS: ATTEND Nurse Practitioner Family
DX: I12.9 Hypertensive chronic kidney disease with stage 1 through stage 4 chronic kidney disease, or unspecified chronic kidney disease (principal); E55.9 Vitamin D deficiency, unspecified; E78.5 Hyperlipidemia, unspecified; E03.9 Hypothyroidism, unspecified; N18.4 Chronic kidney disease, stage 4 (severe)

== ENCOUNTER → 2021-12-29 | Outpatient (CLI) | payer MEDICARE, MEDICAID ==
[~2021-12-29] MED LIST changes: +SIMV-252 PO; -ZOCO10TA PO
[2021-12-29 13:01] LABS: BASO # 0.1 10^3/uL (0.0-0.2); BASO % 1.5 % (0.0-1.0); EOS # 0.2 10^3/uL (0.0-0.5); EOS % 3.4 % (0.0-3.0); HEMATOCRIT 48.2 % (36.0-47.0); HEMOGLOBIN 15.2 g/dl (12.0-15.5); LYMPH # 2.1 10^3/uL (1.5-5.0); LYMPH % 34.3 % (24.0-44.0); MEAN CORPUSCULAR HEMOGLOBIN 29.9 pg (27.0-33.0); MEAN CORPUSCULAR HGB CONC 31.5 g/dl (32.0-36.5); MEAN CORPUSCULAR VOLUME 94.9 fl (80.0-96.0); MONO # 0.5 10^3/uL (0.0-0.8); NEUTROPHILS # 3.2 10^3/uL (1.5-8.5); NEUTROPHILS % 52.6 % (36.0-66.0); PLATELET COUNT, AUTOMATED 191 10^3/uL (150-450); RED BLOOD COUNT 5.08 10^6/uL (4.00-5.40); WHITE BLOOD COUNT 6.1 10^3/uL (4.0-10.0)
[2021-12-29 13:46] LABS: CREATININE FOR GFR 2.05 MG/DL (0.55-1.30); GLOMERULAR FILTRATION RATE 24.9 (>39); POTASSIUM SERUM 4.2 MEQ/L (3.5-5.1)
[2021-12-29 13:47] LABS: ALBUMIN 3.7 GM/DL (3.2-5.2); BILIRUBIN,TOTAL 0.4 MG/DL (0.2-1.0); CALCIUM LEVEL 9.9 MG/DL (8.8-10.2); CHOLESTEROL RISK RATIO 3.297 (<5); FREE T4 1.29 NG/DL (0.76-1.46); THYROID STIMULATING HORMONE 2.4 uIU/ML (0.358-3.740); TOTAL PROTEIN 7.3 GM/DL (6.4-8.2)
== END ==
LOC: M WUC 08:55
PROVIDERS: ATTEND Nurse Practitioner Family
DX: I10 Essential (primary) hypertension (principal); E55.9 Vitamin D deficiency, unspecified

== ENCOUNTER → 2022-03-04 | Outpatient (CLI) | payer MEDICARE, MEDICAID ==
[2022-03-04 13:59] LABS: BASO # 0.1 10^3/uL (0.0-0.2); BASO % 1.2 % (0.0-1.0); EOS # 0.3 10^3/uL (0.0-0.5); EOS % 5.2 % (0.0-3.0); HEMATOCRIT 38.8 % (36.0-47.0); HEMOGLOBIN 11.9 g/dl (12.0-15.5); LYMPH # 1.5 10^3/uL (1.5-5.0); LYMPH % 30.2 % (24.0-44.0); MEAN CORPUSCULAR HEMOGLOBIN 30.1 pg (27.0-33.0); MEAN CORPUSCULAR HGB CONC 30.7 g/dl (32.0-36.5); MONO # 0.5 10^3/uL (0.0-0.8); MONO % 8.9 % (2.0-8.0); NEUTROPHILS # 2.7 10^3/uL (1.5-8.5); NEUTROPHILS % 54.3 % (36.0-66.0); PLATELET COUNT, AUTOMATED 214 10^3/uL (150-450); RED BLOOD COUNT 3.96 10^6/uL (4.00-5.40)
[2022-03-04 14:38] LABS: FREE T4 1.34 NG/DL (0.89-1.76); THYROID STIMULATING HORMONE 1.997 uIU/ML (0.55-4.78)
[2022-03-04 14:54] LABS: HEMOGLOBIN A1c 4.5 % (4.0-6.0)
[2022-03-04 14:58] LABS: ALBUMIN 3.1 G/DL (3.2-5.2); BILIRUBIN,TOTAL 0.5 MG/DL (0.3-1.2); CALCIUM LEVEL 9.6 MG/DL (8.3-10.6); CHOLESTEROL RISK RATIO 3.07 (<5); CREATININE FOR GFR 2.11 MG/DL (0.55-1.30); GLOMERULAR FILTRATION RATE 24.1 (>39); LDL CHOLESTEROL 58.4 MG/DL (<100); POTASSIUM SERUM 4.3 MMOL/L (3.5-5.1)
== END ==
LOC: M WUC 08:43
PROVIDERS: ATTEND Nurse Practitioner Family
DX: I10 Essential (primary) hypertension (principal); E78.5 Hyperlipidemia, unspecified

== ENCOUNTER 2022-03-22 14:26 | Emergency (ER) | payer MEDICARE, MEDICAID ==
[~2022-03-22] VITALS: Ht 139.7 cm; Wt 65.5 kg
[2022-03-22 20:35] VITALS: BP 178/100
== END 2022-03-22 22:30 | disposition home or self-care (01) ==
LOC: M ED 14:26
DX: R22.41 Localized swelling, mass and lump, right lower limb (principal); I12.9 Hypertensive chronic kidney disease with stage 1 through stage 4 chronic kidney disease, or unspecified chronic kidney disease; E78.5 Hyperlipidemia, unspecified; F80.9 Developmental disorder of speech and language, unspecified; E03.9 Hypothyroidism, unspecified; F79 Unspecified intellectual disabilities; Z79.82 Long term (current) use of aspirin; Z79.890 Hormone replacement therapy; Z79.899 Other long term (current) drug therapy

== ENCOUNTER 2022-05-22 20:12 | Inpatient (IN) | payer MEDICARE, MEDICAID ==
[~2022-05-22] VITALS: Ht 160 cm; Wt 70.5 kg
[~2022-05-22 20:12] MED LIST changes: -TRAZ1TAB10 FT; +TRAZ1TAB10 PO
[2022-05-22] MEDS ORDERED: METOCLOPRAMIDE INJ 10MG/2ML VIAL IV ONE (20:55)
[2022-05-22] MEDS ORDERED: NS 500 ML IV ONE (20:55)
[2022-05-22 21:50] LABS: BASO % 0.5 % (0.0-1.0); EOS % 0.4 % (0.0-3.0); HEMATOCRIT 46.3 % (36.0-47.0); HEMOGLOBIN 14.8 g/dl (12.0-15.5); LYMPH % 11.3 % (24.0-44.0); MEAN CORPUSCULAR HEMOGLOBIN 29.7 pg (27.0-33.0); MEAN CORPUSCULAR VOLUME 92.8 fl (80.0-96.0); MONO # 0.4 10^3/uL (0.0-0.8); MONO % 5.2 % (2.0-8.0); NEUTROPHILS # 6.9 10^3/uL (1.5-8.5); NEUTROPHILS % 82.2 % (36.0-66.0); PLATELET COUNT, AUTOMATED 174 10^3/uL (150-450); RED BLOOD COUNT 4.99 10^6/uL (4.00-5.40); WHITE BLOOD COUNT 8.4 10^3/uL (4.0-10.0)
[2022-05-22 22:16] LABS: ALBUMIN 3.2 G/DL (3.2-5.2); BILIRUBIN,DIRECT 0.1 MG/DL (<0.4); BILIRUBIN,TOTAL 0.4 MG/DL (0.3-1.2); TOTAL PROTEIN 6.2 G/DL (5.7-8.2)
[2022-05-22 23:10] LABS: RSV AMPLIFICATION NEGATIVE (NEGATIVE)
[2022-05-22] MEDS ORDERED: NS 1,000 ML IV SCH ×2 (23:10→23:30)
[2022-05-23] MEDS ORDERED: UNRESOLVED CLARIFICATION ENTRY XX SCH (00:01)
[2022-05-23] MEDS ORDERED: SYSTANE EYE OD (00:20)
[2022-05-23] MEDS ORDERED: REFR0.5D8 OD (00:20)
[2022-05-23] MEDS ORDERED: ROSU5TAB5 PO (00:20)
[2022-05-23] MEDS ORDERED: MIRA3350 PO (00:20)
[2022-05-23] MEDS ORDERED: D 1010002 PO (00:20)
[2022-05-23] MEDS ORDERED: LEVO50TA5 PO (00:20)
[2022-05-23] MEDS ORDERED: PARO10TA3 PO (00:20)
[2022-05-23] MEDS ORDERED: CALC1TAB63 PO (00:20)
[2022-05-23] MEDS ORDERED: MED REC COMMENT (00:21)
[2022-05-23] MEDS ORDERED: HOME MED LIST COMPLETE! XX SCH (00:25)
[2022-05-23 01:30] VITALS: BP 135/85
[2022-05-23] MEDS: HEPARIN SOD (PORCINE) 5000UNITS/ML 1ML VIAL/SYRINGE SC SCH ×3 (05:09→20:40)
[2022-05-23] MEDS ORDERED: ONDANSETRON 4MG 2ML VIAL IV PRN (05:25)
[2022-05-23 06:00] VITALS: BP 138/82
[2022-05-23] MEDS ORDERED: LEVOTHYROXINE 50MCG TABLET (0.05MG) PO SCH (06:00)
[2022-05-23 06:22] LABS: HEMATOCRIT 46.5 % (36.0-47.0); HEMOGLOBIN 14.8 g/dl (12.0-15.5); MEAN CORPUSCULAR HEMOGLOBIN 29.5 pg (27.0-33.0); MEAN CORPUSCULAR HGB CONC 31.8 g/dl (32.0-36.5); MEAN CORPUSCULAR VOLUME 92.8 fl (80.0-96.0); PLATELET COUNT, AUTOMATED 178 10^3/uL (150-450); RED BLOOD COUNT 5.01 10^6/uL (4.00-5.40); WHITE BLOOD COUNT 8.7 10^3/uL (4.0-10.0)
[2022-05-23 06:52] LABS: ALBUMIN 3.2 G/DL (3.2-5.2); BILIRUBIN,TOTAL 0.5 MG/DL (0.3-1.2); CREATININE FOR GFR 2.4 MG/DL (0.55-1.30); GLOMERULAR FILTRATION RATE 20.7 (>32); POTASSIUM SERUM 3.6 MMOL/L (3.5-5.1); TOTAL PROTEIN 5.7 G/DL (5.7-8.2)
[2022-05-23] MEDS ORDERED: PARoxetine 10MG TABLET PO SCH (09:00)
[2022-05-23] MEDS: MIRALAX *UNIT DOSE* 17GM PACKET PO SCH (09:00)
[2022-05-23] MEDS: D5W/0.45% SODIUM CHLORIDE 1,000 ML IV SCH ×2 (10:20→20:40)
[2022-05-23] MEDS ORDERED: atenoloL 50 MG TAB PO SCH (21:00)
[2022-05-23] MEDS ORDERED: traZODone 50 MG TAB PO SCH (21:00)
[2022-05-23] MEDS ORDERED: ASPIRIN 81MG ENTERIC TABLET PO SCH (21:00)
[2022-05-23] MEDS ORDERED: ROSUVASTATIN 10 MG TAB (CRESTOR) PO SCH (21:00)
[2022-05-23 22:00] VITALS: BP 154/74
[2022-05-24] MEDS: HEPARIN SOD (PORCINE) 5000UNITS/ML 1ML VIAL/SYRINGE SC SCH ×3 (05:32→20:39)
[2022-05-24] MEDS: LEVOTHYROXINE 100MCG (0.1MG) 5ML SDV PF (SOLUTION FORM) IV SCH (05:32)
[2022-05-24 06:00] VITALS: BP 142/88
[2022-05-24 08:00] VITALS: BP 100/80
[2022-05-24] MEDS: NS 1,000 ML IV SCH ×2 (08:49→17:40)
[2022-05-24] MEDS: MIRALAX *UNIT DOSE* 17GM PACKET PO SCH (11:17)
[2022-05-24] MEDS: SIMETHICONE 80MG CHEW TAB PO SCH ×2 (17:40→20:39)
[2022-05-24 21:50] VITALS: BP 158/82
[2022-05-25 05:31] VITALS: BP 164/72
[2022-05-25] MEDS: HEPARIN SOD (PORCINE) 5000UNITS/ML 1ML VIAL/SYRINGE SC SCH ×3 (06:22→21:41)
[2022-05-25] MEDS: LEVOTHYROXINE 100MCG (0.1MG) 5ML SDV PF (SOLUTION FORM) IV SCH (06:22)
[2022-05-25] MEDS: NS 1,000 ML IV SCH ×2 (06:23→14:47)
[2022-05-25 06:40] LABS: HEMATOCRIT 36.8 % (36.0-47.0); HEMOGLOBIN 11.5 g/dl (12.0-15.5); MEAN CORPUSCULAR HEMOGLOBIN 29.5 pg (27.0-33.0); MEAN CORPUSCULAR HGB CONC 31.3 g/dl (32.0-36.5); MEAN CORPUSCULAR VOLUME 94.4 fl (80.0-96.0); PLATELET COUNT, AUTOMATED 138 10^3/uL (150-450); WHITE BLOOD COUNT 6.5 10^3/uL (4.0-10.0)
[2022-05-25 07:13] LABS: ALBUMIN 2.6 G/DL (3.2-5.2); BILIRUBIN,TOTAL 0.4 MG/DL (0.3-1.2); CALCIUM LEVEL 8.4 MG/DL (8.3-10.6); CREATININE FOR GFR 1.94 MG/DL (0.55-1.30); GLOMERULAR FILTRATION RATE 26.4 (>32); TOTAL PROTEIN 5.1 G/DL (5.7-8.2)
[2022-05-25] MEDS ORDERED: POTASSIUM CHLORIDE 10% LIQ 20MEQ/15ML UDC PO ONE ×2 (08:00→10:00)
[2022-05-25] MEDS: SIMETHICONE 80MG CHEW TAB PO SCH ×4 (08:26→21:41)
[2022-05-25] MEDS: MIRALAX *UNIT DOSE* 17GM PACKET PO SCH (08:26)
[2022-05-25] MEDS: MOM 30ML SUSPENSION UDC PO SCH (11:09)
[2022-05-25 19:58] VITALS: BP 98/59
[2022-05-25] MEDS ORDERED: MOM 30ML SUSPENSION UDC PO ONE (21:00)
[2022-05-26] MEDS: NS 1,000 ML IV SCH ×2 (00:17→10:18)
[2022-05-26 05:31] VITALS: BP 138/110
[2022-05-26] MEDS: HEPARIN SOD (PORCINE) 5000UNITS/ML 1ML VIAL/SYRINGE SC SCH (05:39)
[2022-05-26] MEDS: LEVOTHYROXINE 100MCG (0.1MG) 5ML SDV PF (SOLUTION FORM) IV SCH (05:40)
[2022-05-26 05:54] VITALS: BP 163/107
[2022-05-26 06:52] LABS: HEMATOCRIT 39.4 % (36.0-47.0); HEMOGLOBIN 12.5 g/dl (12.0-15.5); MEAN CORPUSCULAR HEMOGLOBIN 29.5 pg (27.0-33.0); MEAN CORPUSCULAR HGB CONC 31.7 g/dl (32.0-36.5); MEAN CORPUSCULAR VOLUME 92.9 fl (80.0-96.0); PLATELET COUNT, AUTOMATED 164 10^3/uL (150-450); RED BLOOD COUNT 4.24 10^6/uL (4.00-5.40); WHITE BLOOD COUNT 7.1 10^3/uL (4.0-10.0)
[2022-05-26 07:47] LABS: ALBUMIN 2.7 G/DL (3.2-5.2); BILIRUBIN,TOTAL 0.5 MG/DL (0.3-1.2); CALCIUM LEVEL 8.3 MG/DL (8.3-10.6); CREATININE FOR GFR 1.51 MG/DL (0.55-1.30); GLOMERULAR FILTRATION RATE 35.3 (>32); POTASSIUM SERUM 3.4 MMOL/L (3.5-5.1); TOTAL PROTEIN 5.6 G/DL (5.7-8.2)
[2022-05-26] MEDS: PARoxetine 10MG TABLET PO SCH (09:00)
[2022-05-26] MEDS: SIMETHICONE 80MG CHEW TAB PO SCH ×3 (09:00→20:21)
[2022-05-26] MEDS: MOM 30ML SUSPENSION UDC PO SCH (09:00)
[2022-05-26] MEDS: MIRALAX *UNIT DOSE* 17GM PACKET PO SCH (09:00)
[2022-05-26 14:00] VITALS: BP 165/107
[2022-05-26] MEDS ORDERED: POTASSIUM CHLORIDE 10% LIQ 20MEQ/15ML UDC PO ONE ×2 (15:00→17:00)
[2022-05-26] MEDS ORDERED: PILL CUTTER 1 EACH XX PRN (15:10)
[2022-05-26 17:26] VITALS: BP 171/85
[2022-05-26 17:47] LABS: INR 0.99; PROTHROMBIN TIME 13.3 SECONDS (12.5-14.5)
[2022-05-26 20:10] VITALS: BP 175/98
[2022-05-26] MEDS: atenoloL 50 MG TAB PO SCH (20:18)
[2022-05-26] MEDS: DOCUSATE SODIUM 100MG CAPSULE PO SCH (20:18)
[2022-05-26] MEDS: traZODone 50 MG TAB PO SCH (20:18)
[2022-05-26] MEDS: ROSUVASTATIN 10 MG TAB (CRESTOR) PO SCH (20:20)
[2022-05-27] VITALS (8 sets, daily range): BP systolic 131–166; BP diastolic 72–93
[2022-05-27] MEDS: ACETAMINOPHEN TAB 650MG DOSE (2X325MG) PO PRN ×2 (03:11→16:34)
[2022-05-27 04:43] LABS: HEMOGLOBIN 11.7 g/dl (12.0-15.5); MEAN CORPUSCULAR HEMOGLOBIN 29.5 pg (27.0-33.0); MEAN CORPUSCULAR HGB CONC 31.6 g/dl (32.0-36.5); MEAN CORPUSCULAR VOLUME 93.4 fl (80.0-96.0); PLATELET COUNT, AUTOMATED 156 10^3/uL (150-450); RED BLOOD COUNT 3.96 10^6/uL (4.00-5.40); WHITE BLOOD COUNT 5.6 10^3/uL (4.0-10.0)
[2022-05-27] MEDS: LEVOTHYROXINE 50MCG TABLET (0.05MG) PO SCH (05:16)
[2022-05-27 05:19] LABS: ALBUMIN 2.6 G/DL (3.2-5.2); BILIRUBIN,TOTAL 0.4 MG/DL (0.3-1.2); CALCIUM LEVEL 7.9 MG/DL (8.3-10.6); CREATININE FOR GFR 1.47 MG/DL (0.55-1.30); GLOMERULAR FILTRATION RATE 36.4 (>32); POTASSIUM SERUM 4.5 MMOL/L (3.5-5.1); TOTAL PROTEIN 5.2 G/DL (5.7-8.2)
[2022-05-27 07:23] LABS: MAGNESIUM LEVEL 2.2 MG/DL (1.8-2.4)
[2022-05-27] MEDS: SIMETHICONE 80MG CHEW TAB PO SCH ×4 (08:12→20:11)
[2022-05-27] MEDS: MIRALAX *UNIT DOSE* 17GM PACKET PO SCH (08:12)
[2022-05-27] MEDS: PARoxetine 10MG TABLET PO SCH (08:13)
[2022-05-27] MEDS: DOCUSATE SODIUM 100MG CAPSULE PO SCH ×2 (08:13→20:12)
[2022-05-27] MEDS: MOM 30ML SUSPENSION UDC PO SCH (08:13)
[2022-05-27] MEDS ORDERED: hydrALAZINE 20MG/ML 1ML VIAL IV STA (12:58)
[2022-05-27] MEDS: ROSUVASTATIN 10 MG TAB (CRESTOR) PO SCH (20:11)
[2022-05-27] MEDS: atenoloL 50 MG TAB PO SCH (20:11)
[2022-05-27] MEDS: traZODone 50 MG TAB PO SCH (20:12)
[2022-05-28] VITALS (7 sets, daily range): BP systolic 142–175; BP diastolic 76–96
[2022-05-28 05:35] LABS: HEMATOCRIT 44.1 % (36.0-47.0); HEMOGLOBIN 13.4 g/dl (12.0-15.5); MEAN CORPUSCULAR HEMOGLOBIN 29.1 pg (27.0-33.0); MEAN CORPUSCULAR HGB CONC 30.4 g/dl (32.0-36.5); MEAN CORPUSCULAR VOLUME 95.7 fl (80.0-96.0); PLATELET COUNT, AUTOMATED 171 10^3/uL (150-450); RED BLOOD COUNT 4.61 10^6/uL (4.00-5.40); WHITE BLOOD COUNT 5.2 10^3/uL (4.0-10.0)
[2022-05-28 05:52] LABS: ALBUMIN 2.9 G/DL (3.2-5.2); BILIRUBIN,TOTAL 0.4 MG/DL (0.3-1.2); CALCIUM LEVEL 8.1 MG/DL (8.3-10.6); CREATININE FOR GFR 1.49 MG/DL (0.55-1.30); GLOMERULAR FILTRATION RATE 35.8 (>32); POTASSIUM SERUM 4.4 MMOL/L (3.5-5.1); TOTAL PROTEIN 5.9 G/DL (5.7-8.2)
[2022-05-28] MEDS: LEVOTHYROXINE 50MCG TABLET (0.05MG) PO SCH (06:11)
[2022-05-28] MEDS: PARoxetine 10MG TABLET PO SCH (08:02)
[2022-05-28] MEDS: MOM 30ML SUSPENSION UDC PO SCH (08:02)
[2022-05-28] MEDS: DOCUSATE SODIUM 100MG CAPSULE PO SCH ×2 (08:02→20:38)
[2022-05-28] MEDS: SIMETHICONE 80MG CHEW TAB PO SCH ×4 (08:02→20:45)
[2022-05-28] MEDS: MIRALAX *UNIT DOSE* 17GM PACKET PO SCH (08:02)
[2022-05-28] MEDS ORDERED: MOM30SS PO (08:42)
[2022-05-28] MEDS ORDERED: ACET1TAB55 PO (08:42)
[2022-05-28] MEDS ORDERED: SENN-80 PO (08:42)
[2022-05-28] MEDS ORDERED: SIME80TA16 PO (08:49)
[2022-05-28] MEDS: amLODIPine 5 MG TAB PO SCH (13:10)
[2022-05-28] MEDS: traZODone 50 MG TAB PO SCH (20:46)
[2022-05-28] MEDS: atenoloL 50 MG TAB PO SCH (20:46)
[2022-05-28] MEDS: ROSUVASTATIN 10 MG TAB (CRESTOR) PO SCH (20:46)
[2022-05-29 06:00] VITALS: BP 144/76
[2022-05-29] MEDS: LEVOTHYROXINE 50MCG TABLET (0.05MG) PO SCH (06:11)
[2022-05-29 06:37] LABS: HEMATOCRIT 36.9 % (36.0-47.0); HEMOGLOBIN 11.7 g/dl (12.0-15.5); MEAN CORPUSCULAR HEMOGLOBIN 29.7 pg (27.0-33.0); MEAN CORPUSCULAR HGB CONC 31.7 g/dl (32.0-36.5); MEAN CORPUSCULAR VOLUME 93.7 fl (80.0-96.0); PLATELET COUNT, AUTOMATED 181 10^3/uL (150-450); RED BLOOD COUNT 3.94 10^6/uL (4.00-5.40); WHITE BLOOD COUNT 5.3 10^3/uL (4.0-10.0)
[2022-05-29 07:08] LABS: ALBUMIN 2.5 G/DL (3.2-5.2); BILIRUBIN,TOTAL 0.4 MG/DL (0.3-1.2); CALCIUM LEVEL 8.1 MG/DL (8.3-10.6); CREATININE FOR GFR 1.65 MG/DL (0.55-1.30); GLOMERULAR FILTRATION RATE 31.9 (>32); POTASSIUM SERUM 4.4 MMOL/L (3.5-5.1)
[2022-05-29] MEDS: MOM 30ML SUSPENSION UDC PO SCH (09:00)
[2022-05-29] MEDS: DOCUSATE SODIUM 100MG CAPSULE PO SCH ×2 (09:25→20:00)
[2022-05-29] MEDS: PARoxetine 10MG TABLET PO SCH (09:25)
[2022-05-29] MEDS: MIRALAX *UNIT DOSE* 17GM PACKET PO SCH (09:25)
[2022-05-29] MEDS: amLODIPine 5 MG TAB PO SCH (09:26)
[2022-05-29] MEDS: SIMETHICONE 80MG CHEW TAB PO SCH ×4 (09:26→20:00)
[2022-05-29] MEDS: traZODone 50 MG TAB PO SCH (20:00)
[2022-05-29] MEDS: ROSUVASTATIN 10 MG TAB (CRESTOR) PO SCH (20:00)
[2022-05-29] MEDS: atenoloL 50 MG TAB PO SCH (20:03)
[2022-05-30] MEDS: LEVOTHYROXINE 50MCG TABLET (0.05MG) PO SCH (05:30)
[2022-05-30 06:00] VITALS: BP 151/71
[2022-05-30 06:16] LABS: HEMOGLOBIN 12.4 g/dl (12.0-15.5); MEAN CORPUSCULAR HEMOGLOBIN 29.7 pg (27.0-33.0); MEAN CORPUSCULAR HGB CONC 31.8 g/dl (32.0-36.5); MEAN CORPUSCULAR VOLUME 93.5 fl (80.0-96.0); PLATELET COUNT, AUTOMATED 212 10^3/uL (150-450); RED BLOOD COUNT 4.17 10^6/uL (4.00-5.40); WHITE BLOOD COUNT 5.8 10^3/uL (4.0-10.0)
[2022-05-30 06:51] LABS: ALBUMIN 2.6 G/DL (3.2-5.2); BILIRUBIN,TOTAL 0.4 MG/DL (0.3-1.2); CALCIUM LEVEL 8.2 MG/DL (8.3-10.6); CREATININE FOR GFR 1.77 MG/DL (0.55-1.30); GLOMERULAR FILTRATION RATE 29.4 (>32); POTASSIUM SERUM 4.3 MMOL/L (3.5-5.1); TOTAL PROTEIN 5.3 G/DL (5.7-8.2)
[2022-05-30 08:01] VITALS: BP 151/71
[2022-05-30] MEDS: DOCUSATE SODIUM 100MG CAPSULE PO SCH (08:01)
[2022-05-30] MEDS: MOM 30ML SUSPENSION UDC PO SCH (08:01)
[2022-05-30] MEDS: MIRALAX *UNIT DOSE* 17GM PACKET PO SCH (08:01)
[2022-05-30] MEDS: amLODIPine 5 MG TAB PO SCH (08:01)
[2022-05-30] MEDS: SIMETHICONE 80MG CHEW TAB PO SCH ×2 (08:01→13:24)
[2022-05-30] MEDS: PARoxetine 10MG TABLET PO SCH (08:01)
[2022-05-30] MEDS ORDERED: ATEN25TA PO (10:23)
== END 2022-05-30 16:07 | disposition home or self-care (01) | DRG 389 ==
LOC: EDBD 20:12 → M ED 20:12 → M ED INP 23:27 → M MS5PR 05-23 01:30 → M ICU 05-26 17:20 → M MSPAV 05-28 18:03
PROVIDERS: ADMIT Family Medicine; ATTEND Internal Medicine
DX: K56.609 Unspecified intestinal obstruction, unspecified as to partial versus complete obstruction (principal); N18.4 Chronic kidney disease, stage 4 (severe); S06.5X0A Traumatic subdural hemorrhage without loss of consciousness, initial encounter; I12.9 Hypertensive chronic kidney disease with stage 1 through stage 4 chronic kidney disease, or unspecified chronic kidney disease; E78.5 Hyperlipidemia, unspecified; E03.9 Hypothyroidism, unspecified; Z79.890 Hormone replacement therapy; Z79.82 Long term (current) use of aspirin; Z79.899 Other long term (current) drug therapy; R41.9 Unspecified symptoms and signs involving cognitive functions and awareness; E87.6 Hypokalemia; R22.1 Localized swelling, mass and lump, neck; W18.12XA Fall from or off toilet with subsequent striking against object, initial encounter; Y92.231 Patient bathroom in hospital as the place of occurrence of the external cause; Y93.E8 Activity, other personal hygiene; Y99.8 Other external cause status

== ENCOUNTER → 2022-06-09 | Outpatient (CLI) | payer MEDICARE, MEDICAID ==
[~2022-06-09] MED LIST changes: +ACET1TAB55 PO; +ATEN25TA PO; +CALC1TAB63 PO; +D 1010002 PO; +LEVO50TA5 PO; +MED REC COMMENT; +MIRA3350 PO; +MOM30SS PO; +PARO10TA3 PO; +REFR0.5D8 OD; +ROSU5TAB5 PO; +SENN-186 PO; +SIME80TA16 PO; +SYSTANE EYE OD
== END ==
LOC: M WHC 12:52
PROVIDERS: ATTEND Nurse Practitioner Family
DX: M85.80 Other specified disorders of bone density and structure, unspecified site (principal); M81.8 Other osteoporosis without current pathological fracture; Z12.31 Encounter for screening mammogram for malignant neoplasm of breast

== ENCOUNTER → 2022-06-13 | Outpatient (CLI) | payer MEDICARE, MEDICAID ==
[~2022-06-13] MED LIST changes: -SENN-186 PO; +SENN-80 PO
== END ==
LOC: M RAD 11:23
PROVIDERS: ATTEND Neurological Surgery
DX: R51.9 Headache, unspecified (principal)

== ENCOUNTER → 2022-06-16 | Outpatient (CLI) | payer MEDICARE, MEDICAID ==
[2022-06-16 17:58] LABS: BASO # 0.1 10^3/uL (0.0-0.2); BASO % 0.8 % (0.0-1.0); EOS # 0.1 10^3/uL (0.0-0.5); EOS % 2.1 % (0.0-3.0); HEMATOCRIT 38.5 % (36.0-47.0); HEMOGLOBIN 11.8 g/dl (12.0-15.5); LYMPH # 1.7 10^3/uL (1.5-5.0); LYMPH % 27.2 % (24.0-44.0); MEAN CORPUSCULAR HEMOGLOBIN 28.9 pg (27.0-33.0); MEAN CORPUSCULAR HGB CONC 30.6 g/dl (32.0-36.5); MEAN CORPUSCULAR VOLUME 94.4 fl (80.0-96.0); MONO # 0.5 10^3/uL (0.0-0.8); MONO % 8.3 % (2.0-8.0); NEUTROPHILS # 3.7 10^3/uL (1.5-8.5); NEUTROPHILS % 61.1 % (36.0-66.0); PLATELET COUNT, AUTOMATED 179 10^3/uL (150-450); RED BLOOD COUNT 4.08 10^6/uL (4.00-5.40); WHITE BLOOD COUNT 6.1 10^3/uL (4.0-10.0)
[2022-06-16 18:36] LABS: BILIRUBIN,TOTAL 0.3 MG/DL (0.3-1.2); CALCIUM LEVEL 9.6 MG/DL (8.3-10.6); CREATININE FOR GFR 1.92 MG/DL (0.55-1.30); GLOMERULAR FILTRATION RATE 26.8 (>32); POTASSIUM SERUM 4.3 MMOL/L (3.5-5.1); TOTAL PROTEIN 5.6 G/DL (5.7-8.2)
== END ==
LOC: M PLALAB 15:28
PROVIDERS: ATTEND Physician Assistant Medical
DX: S06.5XAA Traumatic subdural hemorrhage with loss of consciousness status unknown, initial encounter (principal); N18.4 Chronic kidney disease, stage 4 (severe); X58.XXXA Exposure to other specified factors, initial encounter; Y92.9 Unspecified place or not applicable; Y93.9 Activity, unspecified; Y99.9 Unspecified external cause status

== ENCOUNTER → 2022-07-14 | Outpatient (CLI) | payer MEDICARE, MEDICAID ==
[~2022-07-14] MED LIST changes: +SENN-186 PO; -SENN-80 PO
[2022-07-14 11:31] LABS: BASO # 0.1 10^3/uL (0.0-0.2); EOS # 0.2 10^3/uL (0.0-0.5); EOS % 3.4 % (0.0-3.0); HEMATOCRIT 42.3 % (36.0-47.0); HEMOGLOBIN 13.2 g/dl (12.0-15.5); LYMPH # 1.8 10^3/uL (1.5-5.0); MEAN CORPUSCULAR HEMOGLOBIN 29.3 pg (27.0-33.0); MEAN CORPUSCULAR HGB CONC 31.2 g/dl (32.0-36.5); MONO # 0.5 10^3/uL (0.0-0.8); MONO % 9.6 % (2.0-8.0); NEUTROPHILS # 2.5 10^3/uL (1.5-8.5); NEUTROPHILS % 50.8 % (36.0-66.0); PLATELET COUNT, AUTOMATED 175 10^3/uL (150-450)
[2022-07-14 11:54] LABS: HEMOGLOBIN A1c 4.8 % (4.0-6.0)
[2022-07-14 12:06] LABS: THYROID STIMULATING HORMONE 2.004 uIU/ML (0.55-4.78)
[2022-07-14 12:10] LABS: FREE T4 1.29 NG/DL (0.89-1.76)
[2022-07-14 12:11] LABS: ALBUMIN 3.1 G/DL (3.2-5.2); BILIRUBIN,TOTAL 0.4 MG/DL (0.3-1.2); CALCIUM LEVEL 9.4 MG/DL (8.3-10.6); CHOLESTEROL RISK RATIO 3.24 (<5); CREATININE FOR GFR 2.02 MG/DL (0.55-1.30); GLOMERULAR FILTRATION RATE 25.2 (>32); LDL CHOLESTEROL 62.6 MG/DL (<100); POTASSIUM SERUM 4.2 MMOL/L (3.5-5.1); TOTAL PROTEIN 5.7 G/DL (5.7-8.2)
== END ==
LOC: M WUC 08:23
PROVIDERS: ATTEND Nurse Practitioner Family
DX: I10 Essential (primary) hypertension (principal); E78.5 Hyperlipidemia, unspecified

== ENCOUNTER → 2022-11-03 | Outpatient (CLI) | payer MEDICARE, MEDICAID | LOC: M PLAIMG 12:43 | PROVIDERS: ATTEND Physician Assistant Medical | DX: M25.511 Pain in right shoulder (principal); M62.541 Muscle wasting and atrophy, not elsewhere classified, right hand; S13.150A Subluxation of C4/C5 cervical vertebrae, initial encounter; M46.92 Unspecified inflammatory spondylopathy, cervical region; X58.XXXA Exposure to other specified factors, initial encounter; Y92.9 Unspecified place or not applicable; Y93.9 Activity, unspecified; Y99.9 Unspecified external cause status ==

== ENCOUNTER → 2022-12-09 | Outpatient (CLI) | payer MEDICARE, MEDICAID | LOC: M WUC 13:27 | PROVIDERS: ATTEND Nurse Practitioner Family | DX: R91.8 Other nonspecific abnormal finding of lung field (principal) ==

== ENCOUNTER → 2023-01-09 | Outpatient (CLI) | payer MEDICAID, MEDICARE ==
[2023-01-09 16:02] LABS: BASO # 0.1 10^3/uL (0.0-0.2); BASO % 1.3 % (0.0-1.0); EOS # 0.2 10^3/uL (0.0-0.5); EOS % 3.1 % (0.0-3.0); HEMATOCRIT 38.3 % (36.0-47.0); HEMOGLOBIN 11.9 g/dl (12.0-15.5); LYMPH # 1.5 10^3/uL (1.5-5.0); LYMPH % 21.2 % (24.0-44.0); MEAN CORPUSCULAR HEMOGLOBIN 28.2 pg (27.0-33.0); MEAN CORPUSCULAR HGB CONC 31.1 g/dl (32.0-36.5); MEAN CORPUSCULAR VOLUME 90.8 fl (80.0-96.0); MONO # 0.6 10^3/uL (0.0-0.8); MONO % 8.3 % (2.0-8.0); NEUTROPHILS # 4.7 10^3/uL (1.5-8.5); NEUTROPHILS % 65.8 % (36.0-66.0); PLATELET COUNT, AUTOMATED 317 10^3/uL (150-450); RED BLOOD COUNT 4.22 10^6/uL (4.00-5.40); WHITE BLOOD COUNT 7.1 10^3/uL (4.0-10.0)
[2023-01-09 16:10] LABS: TOTAL 25(OH) VITAMIN D 73.1 NG/ML (20.0-100.0)
[2023-01-09 16:11] LABS: CHOLESTEROL RISK RATIO 2.89 (<5); HDL CHOLESTEROL 42.1 MG/DL (>40); LDL CHOLESTEROL 59.5 MG/DL (<100); NON-HDL-C 79.9 MG/DL
[2023-01-09 16:12] LABS: FREE T4 1.25 NG/DL (0.89-1.76); THYROID STIMULATING HORMONE 5.554 uIU/ML (0.55-4.78)
[2023-01-09 16:40] LABS: HEMOGLOBIN A1c 4.2 % (4.0-6.0)
== END ==
LOC: M PLALAB 12:48
PROVIDERS: ATTEND Nurse Practitioner Family
DX: E03.9 Hypothyroidism, unspecified (principal); E78.5 Hyperlipidemia, unspecified; E55.9 Vitamin D deficiency, unspecified; M81.0 Age-related osteoporosis without current pathological fracture; Z79.899 Other long term (current) drug therapy

== ENCOUNTER → 2023-02-01 | Outpatient (CLI) | payer MEDICARE, MEDICAID ==
[2023-02-01 14:21] LABS: BASO # 0.1 10^3/uL (0.0-0.2); BASO % 0.6 % (0.0-1.0); EOS # 0.1 10^3/uL (0.0-0.5); HEMATOCRIT 41.8 % (36.0-47.0); HEMOGLOBIN 12.5 g/dl (12.0-15.5); LYMPH # 1.2 10^3/uL (1.5-5.0); LYMPH % 14.6 % (24.0-44.0); MEAN CORPUSCULAR HGB CONC 29.9 g/dl (32.0-36.5); MEAN CORPUSCULAR VOLUME 93.5 fl (80.0-96.0); MONO # 0.6 10^3/uL (0.0-0.8); MONO % 6.9 % (2.0-8.0); NEUTROPHILS # 6.4 10^3/uL (1.5-8.5); NEUTROPHILS % 76.5 % (36.0-66.0); PLATELET COUNT, AUTOMATED 217 10^3/uL (150-450); RED BLOOD COUNT 4.47 10^6/uL (4.00-5.40); WHITE BLOOD COUNT 8.4 10^3/uL (4.0-10.0)
[2023-02-01 14:43] LABS: CALCIUM LEVEL 9.5 MG/DL (8.3-10.6); CREATININE FOR GFR 1.47 MG/DL (0.55-1.30); GLOMERULAR FILTRATION RATE 36.4 (>32); MAGNESIUM LEVEL 2.2 MG/DL (1.8-2.4); POTASSIUM SERUM 5.3 MMOL/L (3.5-5.1)
== END ==
LOC: M PLALAB 09:34
PROVIDERS: ATTEND Nurse Practitioner Family
DX: N18.4 Chronic kidney disease, stage 4 (severe) (principal); I11.0 Hypertensive heart disease with heart failure

== ENCOUNTER → 2023-02-08 | Outpatient (CLI) | payer MEDICARE, MEDICAID ==
[2023-02-08 17:37] LABS: CALCIUM LEVEL 9.9 MG/DL (8.3-10.6); CREATININE FOR GFR 1.74 MG/DL (0.55-1.30); POTASSIUM SERUM 4.7 MMOL/L (3.5-5.1)
== END ==
LOC: M WUC 12:47
PROVIDERS: ATTEND Nurse Practitioner Family
DX: E87.5 Hyperkalemia (principal)

== ENCOUNTER → 2023-02-28 | Outpatient (CLI) | payer MEDICARE, MEDICAID | LOC: M PLAIMG 11:14 | PROVIDERS: ATTEND Nurse Practitioner Family | DX: M85.88 Other specified disorders of bone density and structure, other site (principal); M47.816 Spondylosis without myelopathy or radiculopathy, lumbar region; M16.11 Unilateral primary osteoarthritis, right hip; K59.00 Constipation, unspecified ==

== ENCOUNTER → 2023-04-06 | Outpatient (REF) | payer MEDICARE, MEDICAID ==
[2023-04-06 13:16] LABS: CALCIUM LEVEL 9.6 MG/DL (8.3-10.6); CREATININE FOR GFR 1.37 MG/DL (0.55-1.30); GLOMERULAR FILTRATION RATE 39.4 (>32); MAGNESIUM LEVEL 2.5 MG/DL (1.8-2.4); POTASSIUM SERUM 4.5 MMOL/L (3.5-5.1)
== END ==
LOC: M LABWUC 11:39
PROVIDERS: ATTEND Nurse Practitioner Family
DX: I11.0 Hypertensive heart disease with heart failure (principal)

== ENCOUNTER → 2023-05-17 | Outpatient (CLI) | payer MEDICARE, MEDICAID ==
[2023-05-17 18:21] LABS: BASO # 0.1 10^3/uL (0.0-0.2); BASO % 0.6 % (0.0-1.0); EOS # 0.3 10^3/uL (0.0-0.5); EOS % 3.5 % (0.0-3.0); HEMATOCRIT 37.6 % (36.0-47.0); HEMOGLOBIN 12.1 g/dl (12.0-15.5); LYMPH % 21.4 % (24.0-44.0); MEAN CORPUSCULAR HEMOGLOBIN 30.7 pg (27.0-33.0); MEAN CORPUSCULAR HGB CONC 32.2 g/dl (32.0-36.5); MEAN CORPUSCULAR VOLUME 95.4 fl (80.0-96.0); MONO # 0.7 10^3/uL (0.0-0.8); MONO % 7.4 % (2.0-8.0); NEUTROPHILS # 6.4 10^3/uL (1.5-8.5); NEUTROPHILS % 66.8 % (36.0-66.0); PLATELET COUNT, AUTOMATED 192 10^3/uL (150-450); RED BLOOD COUNT 3.94 10^6/uL (4.00-5.40); WHITE BLOOD COUNT 9.5 10^3/uL (4.0-10.0)
[2023-05-17 18:57] LABS: ALBUMIN 2.9 G/DL (3.2-5.2); BILIRUBIN,TOTAL 0.3 MG/DL (0.3-1.2); CALCIUM LEVEL 9.9 MG/DL (8.3-10.6); CREATININE FOR GFR 1.41 MG/DL (0.55-1.30); GLOMERULAR FILTRATION RATE 38.1 (>32); MAGNESIUM LEVEL 2.2 MG/DL (1.8-2.4); POTASSIUM SERUM 4.9 MMOL/L (3.5-5.1); TOTAL PROTEIN 6.3 G/DL (5.7-8.2)
[2023-05-17 18:58] LABS: THYROID STIMULATING HORMONE 3.649 uIU/ML (0.55-4.78)
[2023-05-17 18:59] LABS: FREE T4 1.22 NG/DL (0.89-1.76)
== END ==
LOC: M PLALAB 14:43
PROVIDERS: ATTEND Nurse Practitioner Family
DX: E03.9 Hypothyroidism, unspecified (principal); R41.82 Altered mental status, unspecified

== ENCOUNTER → 2023-05-24 | Outpatient (REF) | payer MEDICARE, MEDICAID ==
[2023-05-24 17:33] LABS: APPEARANCE, URINE HAZY (CLEAR); BACTERIA, URINE AUTO 1+ (NEGATIVE); BILIRUBIN, URINE AUTO NEGATIVE (NEGATIVE); BLOOD, URINE BLOOD NEGATIVE (NEGATIVE); COLOR, URINE YELLOW (YELLOW); GLUCOSE, URINE (UA) AUTO NEGATIVE (NEGATIVE); KETONE, URINE AUTO NEGATIVE (NEGATIVE); LEUKOCYTE ESTERASE, URINE AUTO TRACE (NEGATIVE); MUCUS, URINE SMALL (NEGATIVE); NITRITE, URINE AUTO POSITIVE (NEGATIVE); PROTEIN, URINE AUTO NEGATIVE (NEGATIVE); RBC, URINE AUTO 3 /HPF (0-3); SPECIFIC GRAVITY URINE AUTO 1.017 (1.002-1.035); SQUAMOUS EPITHELIAL CELL UR AU 3 /HPF (0-6); UROBILINOGEN, URINE AUTO 0.2 mg/dL (0.0-2.0); WBC, URINE AUTO 14 /HPF (0-3)
== END ==
LOC: M LAB REF 16:13
PROVIDERS: ATTEND Nurse Practitioner Family
DX: R41.82 Altered mental status, unspecified (principal)

== ENCOUNTER → 2023-06-19 | Outpatient (CLI) | payer MEDICARE, MEDICAID | LOC: M WUC 11:41 | PROVIDERS: ATTEND Nurse Practitioner Family | DX: M25.532 Pain in left wrist (principal); M79.631 Pain in right forearm ==

== ENCOUNTER → 2023-12-22 | Outpatient (CLI) | payer MEDICARE, MEDICAID ==
[~2023-12-22] MED LIST changes: +ROSU5TAB40 PO; -ROSU5TAB5 PO
[2023-12-22 17:48] LABS: BASO # 0.1 10^3/uL (0.0-0.2); BASO % 1.1 % (0.0-1.0); EOS # 0.4 10^3/uL (0.0-0.5); HEMATOCRIT 39.8 % (36.0-47.0); HEMOGLOBIN 12.9 g/dl (12.0-15.5); LYMPH # 2.5 10^3/uL (1.5-5.0); LYMPH % 33.6 % (24.0-44.0); MEAN CORPUSCULAR HEMOGLOBIN 30.9 pg (27.0-33.0); MEAN CORPUSCULAR HGB CONC 32.4 g/dl (32.0-36.5); MEAN CORPUSCULAR VOLUME 95.2 fl (80.0-96.0); MONO # 0.6 10^3/uL (0.0-0.8); MONO % 8.2 % (2.0-8.0); NEUTROPHILS # 3.7 10^3/uL (1.5-8.5); NEUTROPHILS % 50.8 % (36.0-66.0); PLATELET COUNT, AUTOMATED 177 10^3/uL (150-450); RED BLOOD COUNT 4.18 10^6/uL (4.00-5.40); WHITE BLOOD COUNT 7.3 10^3/uL (4.0-10.0)
[2023-12-22 18:11] LABS: ALBUMIN 3.4 G/DL (3.2-5.2); BILIRUBIN,TOTAL 0.2 MG/DL (0.3-1.2); CHOLESTEROL RISK RATIO 3.49 (<5); CREATININE FOR GFR 1.41 MG/DL (0.55-1.30); GLOMERULAR FILTRATION RATE 38.1 (>32); HDL CHOLESTEROL 42.4 MG/DL (>40); LDL CHOLESTEROL 75.6 MG/DL (<100); NON-HDL-C 105.6 MG/DL; POTASSIUM SERUM 4.5 MMOL/L (3.5-5.1)
[2023-12-22 18:12] LABS: FREE T4 1.4 NG/DL (0.89-1.76); THYROID STIMULATING HORMONE 5.11 uIU/ML (0.55-4.78)
== END ==
LOC: M PLALAB 16:10
PROVIDERS: ATTEND Nurse Practitioner Family
DX: I10 Essential (primary) hypertension (principal); E55.9 Vitamin D deficiency, unspecified; E78.5 Hyperlipidemia, unspecified; E03.9 Hypothyroidism, unspecified

== ENCOUNTER → 2024-01-15 | Outpatient (CLI) | payer MEDICARE, MEDICAID ==
[2024-01-15 19:16] LABS: FREE T4 1.45 NG/DL (0.89-1.76); THYROID STIMULATING HORMONE 4.089 uIU/ML (0.55-4.78)
== END ==
LOC: M PLALAB 15:28
PROVIDERS: ATTEND Nurse Practitioner Family
DX: E03.9 Hypothyroidism, unspecified (principal)

== ENCOUNTER → 2024-07-02 | Outpatient (CLI) | payer MEDICARE, MEDICAID ==
[~2024-07-02] MED LIST changes: -ROSU5TAB40 PO; +ROSU5TAB49 PO
[2024-07-02 13:55] LABS: BASO # 0.1 10^3/uL (0.0-0.2); BASO % 1.2 % (0.0-1.0); EOS # 0.3 10^3/uL (0.0-0.5); EOS % 5.6 % (0.0-3.0); HEMOGLOBIN 12.4 g/dl (12.0-15.5); LYMPH # 1.8 10^3/uL (1.5-5.0); LYMPH % 31.3 % (24.0-44.0); MEAN CORPUSCULAR HEMOGLOBIN 30.9 pg (27.0-33.0); MEAN CORPUSCULAR HGB CONC 31.8 g/dl (32.0-36.5); MEAN CORPUSCULAR VOLUME 97.3 fl (80.0-96.0); MONO # 0.5 10^3/uL (0.0-0.8); NEUTROPHILS # 3.1 10^3/uL (1.5-8.5); NEUTROPHILS % 53.6 % (36.0-66.0); PLATELET COUNT, AUTOMATED 187 10^3/uL (150-450); RED BLOOD COUNT 4.01 10^6/uL (4.00-5.40); WHITE BLOOD COUNT 5.9 10^3/uL (4.0-10.0)
[2024-07-02 14:03] LABS: ALBUMIN 3.1 G/DL (3.2-5.2); BILIRUBIN,TOTAL 0.3 MG/DL (0.3-1.2); CALCIUM LEVEL 9.7 MG/DL (8.3-10.6); CHOLESTEROL RISK RATIO 3.91 (<5); CREATININE FOR GFR 1.62 MG/DL (0.55-1.30); GLOMERULAR FILTRATION RATE 32.4 (>32); HDL CHOLESTEROL 35.5 MG/DL (>40); LDL CHOLESTEROL 73.1 MG/DL (<100); NON-HDL-C 103.5 MG/DL; POTASSIUM SERUM 4.7 MMOL/L (3.5-5.1); TOTAL PROTEIN 6.4 G/DL (5.7-8.2)
[2024-07-02 14:04] LABS: THYROID STIMULATING HORMONE 2.313 uIU/ML (0.55-4.78)
[2024-07-02 14:05] LABS: FREE T4 1.38 NG/DL (0.89-1.76)
== END ==
LOC: M WUC 10:03
PROVIDERS: ATTEND Nurse Practitioner Family
DX: E78.5 Hyperlipidemia, unspecified (principal); E03.9 Hypothyroidism, unspecified

== ENCOUNTER → 2024-12-13 | Outpatient (CLI) | payer MEDICARE, MEDICAID ==
[2024-12-13 17:05] LABS: BASO # 0.1 10^3/uL (0.0-0.2); BASO % 1.0 % (0.0-1.0); EOS # 0.3 10^3/uL (0.0-0.5); EOS % 4.8 % (0.0-3.0); LYMPH # 2.0 10^3/uL (1.5-5.0); LYMPH % 34.6 % (24.0-44.0); MONO # 0.5 10^3/uL (0.0-0.8); MONO % 8.7 % (2.0-8.0); NEUTROPHILS # 2.9 10^3/uL (1.5-8.5); NEUTROPHILS % 50.7 % (36.0-66.0); PLATELET COUNT, AUTOMATED 198 10^3/uL (150-450)
[2024-12-13 17:33] LABS: ALT/SGPT 13.0 U/L (7.0-40); AST/SGOT 14.0 U/L (<34); CALCIUM LEVEL 9.8 MG/DL (8.3-10.6); CARBON DIOXIDE LEVEL 30.0 MMOL/L (20-31); CHLORIDE LEVEL 104.0 MMOL/L (98-107); CHOLESTEROL LEVEL 157.0 MG/DL (<200); CHOLESTEROL RISK RATIO 4.33 (<5); CREATININE FOR GFR 1.76 MG/DL (0.55-1.30); GLOMERULAR FILTRATION RATE 28.5 (>32); LDL CHOLESTEROL 75.0 MG/DL (<100); MAGNESIUM LEVEL 2.4 MG/DL (1.8-2.4); NON-HDL-C 120.8 MG/DL; POTASSIUM SERUM 4.6 MMOL/L (3.5-5.1); SODIUM LEVEL 143.0 MMOL/L (136-145); TRIGLYCERIDES LEVEL 229.0 MG/DL (<150)
[2024-12-13 17:37] LABS: FREE T4 1.42 NG/DL (0.89-1.76)
== END ==
LOC: M PLALAB 14:10
PROVIDERS: ATTEND Nurse Practitioner Family
DX: E55.9 Vitamin D deficiency, unspecified (principal); I10 Essential (primary) hypertension; E03.9 Hypothyroidism, unspecified; E78.5 Hyperlipidemia, unspecified; K59.00 Constipation, unspecified

== ENCOUNTER → 2025-01-02 | Outpatient (CLI) | payer MEDICARE, MEDICAID ==
[2025-01-02 12:47] LABS: BASO # 0.1 10^3/uL (0.0-0.2); BASO % 1.4 % (0.0-1.0); EOS # 0.4 10^3/uL (0.0-0.5); EOS % 7.5 % (0.0-3.0); LYMPH # 1.5 10^3/uL (1.5-5.0); LYMPH % 29.6 % (24.0-44.0); MONO # 0.4 10^3/uL (0.0-0.8); MONO % 8.3 % (2.0-8.0); NEUTROPHILS # 2.7 10^3/uL (1.5-8.5); NEUTROPHILS % 53.0 % (36.0-66.0); PLATELET COUNT, AUTOMATED 193 10^3/uL (150-450)
[2025-01-02 12:48] LABS: ALT/SGPT 13.0 U/L (7.0-40); AST/SGOT 15.0 U/L (<34); CALCIUM LEVEL 9.6 MG/DL (8.3-10.6); CARBON DIOXIDE LEVEL 30.0 MMOL/L (20-31); CHLORIDE LEVEL 104.0 MMOL/L (98-107); CHOLESTEROL LEVEL 157.0 MG/DL (<200); CHOLESTEROL RISK RATIO 3.86 (<5); CREATININE FOR GFR 1.61 MG/DL (0.55-1.30); GLOMERULAR FILTRATION RATE 31.8 (>32); LDL CHOLESTEROL 83.2 MG/DL (<100); MAGNESIUM LEVEL 2.3 MG/DL (1.8-2.4); NON-HDL-C 116.4 MG/DL; POTASSIUM SERUM 4.8 MMOL/L (3.5-5.1); SODIUM LEVEL 141.0 MMOL/L (136-145); TRIGLYCERIDES LEVEL 166.0 MG/DL (<150)
[2025-01-02 12:50] LABS: FREE T4 1.45 NG/DL (0.89-1.76)
== END ==
LOC: M WUC 08:42
PROVIDERS: ATTEND Nurse Practitioner Family
DX: E55.9 Vitamin D deficiency, unspecified (principal); I10 Essential (primary) hypertension; E03.9 Hypothyroidism, unspecified; E78.5 Hyperlipidemia, unspecified

== ENCOUNTER 2025-03-13 12:00 | Emergency (ER) | payer MEDICARE, MEDICAID ==
[~2025-03-13] VITALS: Ht 160 cm; Wt 68.7 kg
[2025-03-13 12:18] VITALS: TEMP 96.8
[2025-03-13 12:42] LABS: BASO # 0.1 10^3/uL (0.0-0.2); BASO % 1.2 % (0.0-1.0); EOS # 0.3 10^3/uL (0.0-0.5); EOS % 4.3 % (0.0-3.0); LYMPH # 1.6 10^3/uL (1.5-5.0); LYMPH % 23.5 % (24.0-44.0); MONO # 0.6 10^3/uL (0.0-0.8); MONO % 8.7 % (2.0-8.0); NEUTROPHILS # 4.2 10^3/uL (1.5-8.5); NEUTROPHILS % 62.0 % (36.0-66.0); PLATELET COUNT, AUTOMATED 184 10^3/uL (150-450)
[2025-03-13 13:02] LABS: CK-MB VALUE MASS 2.7 NG/ML (<3.6)
[2025-03-13 13:03] LABS: CPK CREATINE PHOSPHOKINASE 87 U/L (34-145); MB/CK RELATIVE INDEX 3.10 (< OR =4)
[2025-03-13 13:09] LABS: ALT/SGPT 15 U/L (7.0-40); AST/SGOT 16 U/L (<34); CALCIUM LEVEL 9.3 MG/DL (8.3-10.6); CARBON DIOXIDE LEVEL 26 MMOL/L (20-31); CHLORIDE LEVEL 108 MMOL/L (98-107); CREATININE FOR GFR 1.49 MG/DL (0.55-1.30); GLOMERULAR FILTRATION RATE 34.6 (>32); POTASSIUM SERUM 4.8 MMOL/L (3.5-5.1); SODIUM LEVEL 141 MMOL/L (136-145)
[2025-03-13 14:36] LABS: CK-MB VALUE MASS 2.6 NG/ML (<3.6)
[2025-03-13 14:45] VITALS: BP 140/86; O2SAT 100
[2025-03-13 15:03] LABS: CPK CREATINE PHOSPHOKINASE 85.0 U/L (34-145); MB/CK RELATIVE INDEX 3.05 (< OR =4)
== END 2025-03-13 15:27 | disposition home or self-care (01) ==
LOC: M ED 12:00 → EDBD 12:00 → M ED 15:27
DX: R07.9 Chest pain, unspecified (principal); I44.0 Atrioventricular block, first degree; I12.9 Hypertensive chronic kidney disease with stage 1 through stage 4 chronic kidney disease, or unspecified chronic kidney disease; E03.9 Hypothyroidism, unspecified; Z79.1 Long term (current) use of non-steroidal anti-inflammatories (NSAID); Z79.899 Other long term (current) drug therapy